=== PATIENT | male | born 1955 | race Caucasian/White ===

== ENCOUNTER → 2019-09-23 10:46 | Outpatient (BNVA) | payer OTHER, SELFPAY | PROVIDERS: Family Provider Family Medicine; PCP Family Medicine; Visit Provider Internal Medicine Rheumatology | DX: L40.59 Other psoriatic arthropathy (principal); L40.0 Psoriasis vulgaris; Z79.899 Other long term (current) drug therapy; Z79.52 Long term (current) use of systemic steroids | CPT/HCPCS: 99213 ==

== ENCOUNTER 2019-10-27 12:31 | Outpatient (CLI) | payer OTHER, SELFPAY ==
[2019-10-27 13:04] LABS: Basophils # 0.1 10^3/uL (0.0-0.1); Eosinophils # 0.3 10^3/uL (0.0-0.8); Eosinophils % 4.6 %; Hematocrit 44.9 % (42.0-52.0); Hemoglobin 14.3 g/dL (11.7-16.6); Lymphocytes # 1.5 10^3/uL (0.8-4.8); Lymphocytes % 23.8 %; Mean Corpuscular HGB Conc 31.8 g/dL (30.0-36.0); Mean Corpuscular Hemoglobin 28.3 pg (28.0-34.0); Mean Corpuscular Volume 88.7 fL (80-94); Mean Platelet Volume 10.3 fL (7.4-10.4); Monocytes # 0.9 10^3/uL (0.2-0.9); Monocytes % 13.8 %; Neutrophils # 3.5 10^3/uL (1.8-7.7); Neutrophils % 56.6 %; Nucleated Red Blood Cells % 0 %; Platelet Count 190 10^3/cmm (130-400); Red Blood Count 5.06 10^6/uL (4.1-5.3); Red Cell Distribution Width 14.3 % (12.1-15.1); White Blood Count 6.1 10^3/uL (4.0-10.0)
[2019-10-27 13:05] LABS: Glomerular Filtration Rate 55.2 mL/min (90-130)
[2019-10-27 13:06] LABS: Alanine Aminotransferase 19 U/L (0-41); Albumin Level 3.9 g/dL (3.5-5.2); Alkaline Phosphatase 50 IU/L (40-130); Aspartate Amino Transferase 18 U/L (0-40); C Reactive Protein 0.9 mg/L (0.0-4.9); Globulin 2.9 g/dL (1.3-4.6); Total Bilirubin 0.3 mg/dL (0.15-1.2); Total Protein 6.8 g/dL (6.6-8.7)
[2019-10-27 14:09] LABS: Erythrocyte Sedimentation Rate 7 mm/hr (0-10)
== END 2019-10-27 12:32 | disposition home or self-care (01) ==
PROVIDERS: Family Provider Family Medicine; PCP Family Medicine; Visit Provider Internal Medicine Rheumatology
DX: L40.59 Other psoriatic arthropathy (principal); Z79.52 Long term (current) use of systemic steroids
CPT/HCPCS: 80076; 82565; 85025; 85651; 86140

== ENCOUNTER → 2020-03-07 08:14 | Outpatient (BNVA) | payer OTHER, SELFPAY | PROVIDERS: Family Provider Family Medicine; PCP Family Medicine; Visit Provider Internal Medicine Rheumatology | DX: L40.0 Psoriasis vulgaris (principal); Z11.59 Encounter for screening for other viral diseases; Z72.89 Other problems related to lifestyle; Z79.52 Long term (current) use of systemic steroids | CPT/HCPCS: 36415; 80076; 82565; 85025; 85651; 86140; 86704 ==

== ENCOUNTER → 2020-03-08 15:54 | Outpatient (BNVA) | payer OTHER, SELFPAY | PROVIDERS: Family Provider Family Medicine; PCP Family Medicine; Visit Provider Internal Medicine Rheumatology | DX: L40.0 Psoriasis vulgaris (principal); Z79.899 Other long term (current) drug therapy; Z71.89 Other specified counseling | CPT/HCPCS: 99214 ==

== ENCOUNTER 2020-03-17 09:24 | Outpatient (CLI) | payer OTHER, SELFPAY ==
--- NOTE | 2020-03-17 09:32 | XR_ITS ---
WS: [id number] Lumbar spine, 3 views, 03/17/2020. Clinical Data: inflammatory arthritis Comparison: None. Findings: No compression fractures or subluxation is seen. No disc space narrowing is seen. The transverse proc esses and SI joints are normal. There is anterior osteoarthritic spurring from L2 through L5. There is calcification in the wall of t he abdominal aorta but no aneurysm is seen. XR/XR lumbar spine 2-3V* [id number] Impression: Moderate anterior osteoarthritic spurring L2-L5.
--- NOTE | 2020-03-17 09:32 | XR_ITS ---
WS: [id number] Cervical spine, 3 views, 03/17/2020 Clinical Data: inflammatory arthritis Comparison: None. Findings: No compression fractures are seen. There is anterior osteoarthritic spurring at C4-C6. Ther e is disc space narrowing C5-C6. No prevertebral soft tissue swelling is present. The odontoid is nor mal. The lung apices and soft tissues of neck are normal. XR/XR cervical spine 3V* [id number] Impression: 1. Anterior osteoarthritic change from C4 through C6. 2. Degenerative disc narrowing at C5-C6.
--- NOTE | 2020-03-17 09:32 | XR_ITS ---
WS: [id number] Left foot, 3 views, 03/17/2020 Clinical Data: inflammatory arthritis Comparison: None. Findings: No fractures or dislocations are seen. No bone destruction or erosion is noted. The joint spaces and soft tissues are normal. Minimal degenerative change of the head of the left first metatarsal is seen . There is an Achilles spur. XR/XR foot LT min 3V* [id number] Impression: Minimal degenerative change at head of left first metatarsal.
--- NOTE | 2020-03-17 09:32 | XR_ITS ---
WS: [id number] Thoracic spine, 3 views, 03/17/2020 Clinical Data: inflammatory arthritis Comparison: None. Findings: No compression fractures are seen. The disc heights are normal. Mild anterior osteoarthritic change is seen from the T7-T10. The paravertebral regions are normal. Th ere may be a hiatal hernia. XR/XR thoracic spine 3V* [id number] Impression: Mild osteoarthritis from T7 through T10.
--- NOTE | 2020-03-17 09:32 | XR_ITS ---
WS: [id number] Left hand, 3 views, 03/17/2020 Clinical Data: inflammatory arthritis Comparison: None. Findings: No fractures or dislocations are seen. The soft tissues are unremarkable. The joint spaces are normal No periarticular calcifications or demineralization is seen. XR/XR hand LT min 3V* [id number] Impression: Negative left hand.
--- NOTE | 2020-03-17 09:32 | XR_ITS ---
WS: [id number] Right hand, 3 views, 03/17/2020 Clinical Data: inflammatory arthritis Comparison: None. Findings: No fractures or dislocations are seen. The soft tissues are unremarkable. There is minima l osteoarthritic change of the right second DIP joint. No periarticular calcifications or demineralization is seen XR/XR hand RT min 3V* [id number] Impression: Minimal osteoarthritis of the right second DIP joint.
--- NOTE | 2020-03-17 09:32 | XR_ITS ---
WS: [id number] Right foot, 3 views, 03/17/2020 Clinical Data: inflammatory arthritis Comparison: None. Findings: No fractures or dislocations are seen. No bone destruction or erosion is noted. The joint spaces and soft tissues are normal. There is a plantar spur and an Achilles spur. No periarticular demineralization or calcifications are seen. XR/XR foot RT min 3V* [id number] Impression: Negative right foot.
== END 2020-03-17 09:25 | disposition home or self-care (01) ==
LOC: RADWPI 09:27
PROVIDERS: Family Provider Family Medicine; PCP Family Medicine; Visit Provider Internal Medicine Rheumatology
DX: M19.90 Unspecified osteoarthritis, unspecified site (principal); M47.812 Spondylosis without myelopathy or radiculopathy, cervical region; M19.041 Primary osteoarthritis, right hand; M46.06 Spinal enthesopathy, lumbar region; M47.814 Spondylosis without myelopathy or radiculopathy, thoracic region
CPT/HCPCS: 72040; 72072; 72100; 73130; 73630

== ENCOUNTER → 2020-06-21 10:13 | Outpatient (BNVA) | payer OTHER, SELFPAY | PROVIDERS: Family Provider Family Medicine; PCP Family Medicine; Visit Provider Internal Medicine Rheumatology | DX: Z79.899 Other long term (current) drug therapy (principal) | CPT/HCPCS: 36415; 80076; 82565; 85025; 85651; 86140 ==

== ENCOUNTER → 2020-08-09 09:38 | Outpatient (BNVA) | payer OTHER, SELFPAY | PROVIDERS: Family Provider Family Medicine; PCP Family Medicine; Visit Provider Internal Medicine Rheumatology | DX: L40.59 Other psoriatic arthropathy (principal); L40.0 Psoriasis vulgaris; Z79.52 Long term (current) use of systemic steroids; Z79.899 Other long term (current) drug therapy; N18.9 Chronic kidney disease, unspecified | CPT/HCPCS: 99214 ==

== ENCOUNTER → 2020-09-08 13:10 | Outpatient (BNVA) | payer OTHER, SELFPAY | PROVIDERS: Family Provider Family Medicine; PCP Family Medicine Adult Medicine; Visit Provider Internal Medicine Rheumatology | DX: Z79.899 Other long term (current) drug therapy (principal) | CPT/HCPCS: 36415; 80076; 82565; 85025; 85651; 86140 ==

== ENCOUNTER → 2020-12-01 09:44 | Outpatient (BNVA) | payer OTHER, SELFPAY | PROVIDERS: Family Provider Family Medicine; PCP Family Medicine Adult Medicine; Visit Provider Internal Medicine Rheumatology | DX: L40.0 Psoriasis vulgaris (principal); L40.59 Other psoriatic arthropathy; Z79.899 Other long term (current) drug therapy; N18.9 Chronic kidney disease, unspecified | CPT/HCPCS: 99214 ==

== ENCOUNTER → 2021-01-05 10:04 | Outpatient (BNVA) | payer OTHER, SELFPAY | PROVIDERS: Family Provider Family Medicine; PCP Family Medicine Adult Medicine; Visit Provider Internal Medicine Rheumatology | DX: L40.59 Other psoriatic arthropathy (principal); Z79.899 Other long term (current) drug therapy | CPT/HCPCS: 36415; 80076; 82565; 85025; 86140 ==

== ENCOUNTER → 2021-04-03 09:15 | Outpatient (BNVA) | payer OTHER, SELFPAY | PROVIDERS: Family Provider Family Medicine; PCP Family Medicine Adult Medicine; Visit Provider Internal Medicine Rheumatology | DX: L40.59 Other psoriatic arthropathy (principal); L40.0 Psoriasis vulgaris; Z79.899 Other long term (current) drug therapy; N18.9 Chronic kidney disease, unspecified; Z71.89 Other specified counseling | CPT/HCPCS: 99214 ==

== ENCOUNTER → 2021-07-18 11:04 | Outpatient (BNVA) | payer OTHER, SELFPAY | PROVIDERS: Family Provider Family Medicine; PCP Family Medicine Adult Medicine; Visit Provider Internal Medicine Rheumatology | DX: L40.59 Other psoriatic arthropathy (principal); Z79.899 Other long term (current) drug therapy | CPT/HCPCS: 36415; 80076; 82565; 85025; 86140 ==

== ENCOUNTER → 2022-04-09 14:10 | Outpatient (BNVA) | payer MEDICARE, SELFPAY | PROVIDERS: Family Provider Family Medicine; PCP Family Medicine Adult Medicine; Visit Provider Internal Medicine Rheumatology | DX: L40.59 Other psoriatic arthropathy (principal); L40.0 Psoriasis vulgaris; Z79.899 Other long term (current) drug therapy; Z79.52 Long term (current) use of systemic steroids; N18.9 Chronic kidney disease, unspecified | CPT/HCPCS: 99214 ==

== ENCOUNTER → 2022-08-01 14:44 | Outpatient (BNVA) | payer MEDICARE, SELFPAY | PROVIDERS: Family Provider Family Medicine; PCP Family Medicine Adult Medicine; Visit Provider Internal Medicine Rheumatology | DX: L40.59 Other psoriatic arthropathy (principal); Z79.899 Other long term (current) drug therapy; L40.0 Psoriasis vulgaris; N18.9 Chronic kidney disease, unspecified | CPT/HCPCS: 99214 ==

== ENCOUNTER 2022-08-21 16:35 | Outpatient (CLI) | payer MEDICARE, SELFPAY ==
[2022-08-21 17:06] LABS: Basophils # 0.1 10^3/uL (0.0-0.1); Basophils % 1.3 %; Eosinophils # 0.3 10^3/uL (0.0-0.8); Eosinophils % 5.2 %; Hematocrit 46.2 % (42.0-52.0); Hemoglobin 15.2 g/dL (11.7-16.6); Lymphocytes # 1.8 10^3/uL (0.8-4.8); Lymphocytes % 29.4 %; Mean Corpuscular HGB Conc 32.9 g/dL (30.0-36.0); Mean Corpuscular Hemoglobin 30.8 pg (28.0-34.0); Mean Corpuscular Volume 93.7 fl (80-94); Mean Platelet Volume 9.9 fL (7.4-10.4); Monocytes # 0.8 10^3/uL (0.2-0.9); Monocytes % 13.1 %; Neutrophils # 3.14 10^3/uL (1.8-7.7); Neutrophils % 50.7 %; Nucleated Red Blood Cells % 0 %; Platelet Count 205 10^3/cmm (130-400); Red Blood Count 4.93 10^6/uL (4.1-5.3); Red Cell Distribution Width 13.4 % (12.1-15.1); White Blood Count 6.2 10^3/uL (4.0-10.0)
[2022-08-21 17:27] LABS: Alanine Aminotransferase 21 U/L (0-41); Albumin Level 3.8 g/dL (3.5-5.2); Alkaline Phosphatase 69 U/L (40-130); Globulin 3.3 g/dL (1.3-4.6); Total Bilirubin 0.2 mg/dL (0.15-1.2); Total Protein 7.1 g/dL (6.6-8.7)
[2022-08-21 17:30] LABS: Aspartate Amino Transferase 25 U/L (0-40)
== END 2022-08-21 16:36 | disposition home or self-care (01) ==
PROVIDERS: PCP Family Medicine Adult Medicine; Visit Provider Internal Medicine Rheumatology
DX: L40.59 Other psoriatic arthropathy (principal); Z79.899 Other long term (current) drug therapy
CPT/HCPCS: 36415; 80076; 82565; 85025; 86140

== ENCOUNTER 2022-08-23 10:11 | Inpatient (IN) | payer MEDICARE, SELFPAY ==
[2022-08-23] VITALS (24 sets, daily range): BP systolic 118–218; BP diastolic 82–113; PULSE 54–78; RESP 12–24; TEMP 36.2–36.7; O2SAT 92–99; BMI 33.6
--- NOTE | 2022-08-23 10:22 | ECG_ITS ---
[facility] Test Date: 2022-08-23 Pat Name: Orlando Tam Department: Room: Gender: Male Ent Consultant: : 1955 Requested By: Mayo Watts Order Number: [id number] Pan MD: Neetu Molina M.D. Measurements Intervals [place] Rate: 65 P: 17 [place]: 186 QRS: -25 QRSD: 91 T: 20 QT: 372 QTc: 388 Interpretive Statements SINUS RHYTHM BORDERLINE LEFT AXIS DEVIATION [QRS AXIS < -20] NONSPECIFIC ST & T-WAVE ABNORMALITY Compared to ECG 08/23/2022 11:26:39 Ectopic atrial rhythm no longer present T-wave abnormality still present Electronically Signed On 08-23-2022 21:11:29 APPLIANCE SERVICE REPRESENTATIVE by Neetu Molina M.D. [id number]
--- NOTE | 2022-08-23 10:24 | ECG_ITS ---
[facility] Test Date: 2022-08-23 Pat Name: Orlando Tam Department: Room: Gender: Male Internet Marketing Specialist: : 1955 Requested By: Mayo Watts Order Number: [id number] Pan MD: Neetu Molina M.D. Measurements Intervals [place] Rate: 60 P: 152 [place]: 174 QRS: 201 QRSD: 92 T: 155 QT: 378 QTc: 380 Interpretive Statements Lead reversal- 1 & aVL POSSIBLE RIGHT VENTRICULAR HYPERTROPHY [SOME/ALL OF: PROMINENT R IN V1, LATE TRANSITION, RAD, MÓNICA, SSS] NONSPECIFIC ST & T-WAVE ABNORMALITY No previous ECG available for comparison Electronically Signed On 08-23-2022 21:11:05 EMERGENCY VETERINARIAN by Neetu Molina M.D. [id number]
--- NOTE | 2022-08-23 10:31 | ECG_ITS ---
[facility] Test Date: 2022-08-23 Pat Name: Orlando Tam Department: Room: Gender: Male Hand Icer: : 1955 Requested By: Mayo Watts Order Number: [id number] Pan MD: Neetu Molina M.D. Measurements Intervals [place] Rate: 71 P: 62 [place]: 176 QRS: 8 QRSD: 95 T: 57 QT: 389 QTc: 424 Interpretive Statements SINUS RHYTHM EARLY REPOLARIZATION [ST ELEVATION WITH NORMALLY INFLECTED T-WAVE] No previous ECG available for comparison Electronically Signed On 08-23-2022 21:09:29 SUSTAINABLE COMMUNITIES DESIGNER by Neetu Molina M.D. [id number]
--- NOTE | 2022-08-23 10:31 | XR_ITS ---
WS: [id number] Portable AP upright chest, 08/23/2022 Clinical Data: chest pain Comparison: PA and lateral chest, 11/19/2018 Findings: No nodules, masses or effusions are seen. The heart is normal. The pulmonary vascularity is not increased. No pneumonia or pneumothorax is seen. The aortic arch and descending thoracic aorta s how tortuosity. There is a large hiatal hernia behind the heart. Monitor leads are on the chest wall. XR/XR chest 1V portable [id number] Impression: Atherosclerosis and hiatal hernia.
[2022-08-23 10:33] LABS: Basophils # 0.1 10^3/uL (0.0-0.1); Eosinophils # 0.3 10^3/uL (0.0-0.8); Eosinophils % 5.1 %; Hematocrit 48.4 % (42.0-52.0); Hemoglobin 16.1 g/dL (11.7-16.6); Lymphocytes # 1.8 10^3/uL (0.8-4.8); Lymphocytes % 30.6 %; Mean Corpuscular HGB Conc 33.3 g/dL (30.0-36.0); Mean Corpuscular Hemoglobin 30.8 pg (28.0-34.0); Mean Corpuscular Volume 92.7 fl (80-94); Mean Platelet Volume 9.7 fL (7.4-10.4); Monocytes # 0.6 10^3/uL (0.2-0.9); Neutrophils # 2.97 10^3/uL (1.8-7.7); Nucleated Red Blood Cells % 0 %; Platelet Count 208 10^3/cmm (130-400); Red Blood Count 5.22 10^6/uL (4.1-5.3); Red Cell Distribution Width 13.3 % (12.1-15.1); White Blood Count 5.7 10^3/uL (4.0-10.0)
[2022-08-23] MEDS: clopidogrel 300 mg Tablet 600 MG PO (10:42)
[2022-08-23] MEDS: heparin 5,000 unit/mL INJ 1 mL 4000 UNIT IVP (10:43)
[2022-08-23 10:49] LABS: Partial Thromboplastin Time 27.8 SECONDS (23.9-36.7)
--- NOTE | 2022-08-23 10:53 | ED_ITS ---
HPI - Chest Pain General: Chief Complaint: Chest Pain Stated Complaint: chest pain and arm hurts Time Seen by Provider: 08/23/22 10:26 Source: patient Mode of arrival: ambulatory History of Present Illness: 67-year-old male presents emergency room complaining of substernal chest pain rating to his left arm that began yesterday afternoon around 1 PM. He has had intermitting chest pain since then increasing in intensity and frequency. He is requiring less exertion to bring it on. He noticed since yesterday when it began it would cause some shortness of breath nausea. With rest it would resolve within 5 minutes. Last night he had severe pain radiating to his left arm he took some ibuprofen for it. This morning when he walked from his home to his vehicle had severe pain and it took 4-minute 4 to 5 minutes to resolve. States the pain was 10 of 10 of the time. Walking back to the exam room he had similar type pain when I came to see the patient his pain had completely resolved. He has no known history of coronary artery disease does have a history of some reflux. Patient is not diabetic. He has no known history of hypertension he is severely hypertensive on arrival here. His initial EKG shows questionable ST elevation but appears to be early repull I asked Dr. Nolasco to over read he agreed it was likely early repolarization. MD complaint: chest pain Onset (ago): day(s) (1) Timing of current episode: episodic Prior episodes: Yes Onset: during exertion Pain location: substernal and left chest Pain radiation: left arm Severity: severe Quality: tightness and aching Relieving factors: rest Exacerbating factors: exertion Associated symptoms: Deny abdominal pain, diaphoresis, dyspnea, fever(s), leg edema, nausea, palpitations, sense of impending doom, syncope or vomiting Treatment prior to arrival: none Review of Systems Const: Denies: fever(s), chills, fatigue, malaise or diaphoresis ENMT: Denies: throat pain, ear or mastoid pain, nasal discharge or nasal congestion Card: Reports: chest pain and edema; Denies: palpitations, irregular heart rhythm or syncope Resp: Denies: dyspnea, productive cough or non-productive cough GI: Denies: abdominal pain, nausea or vomiting : Denies: flank pain, dysuria, urinary frequency or urinary urgency Skin/Breast: Denies: rash or pruritus PFSH ED PFSH: Medical History CKD (chronic kidney disease) High risk medication use Low back strain Nasal and sinus discharge Surgical History History of elbow surgery History of mandibular surgery Family History Other CAD (coronary artery disease) Cancer Hyperlipidemia Hypertension Denies family history of Rheumatoid arthritis Diabetes Chronic kidney disease (CKD) Systemic lupus erythematosus (SLE) in adult Stroke Social History Smoking and tobacco status: never smoked Alcohol intake: never History of recent travel: No Physical Exam Const: GENERAL APPEARANCE: cooperative and comfortable ORIENTATION/CONSCIOUSNESS: Yes awake, Yes oriented to person, Yes oriented to place and Yes oriented to time HENMT: COMMON NORMALS: normocephalic, atraumatic and hearing grossly normal bilaterally HEAD & SCALP: normocephalic and atraumatic Resp: COMMON NORMALS: normal respiratory effort, No retractions, No use of accessory muscles and clear to auscultation bilaterally AUSCULTATION: clear to auscultation bilaterally Cardio: COMMON NORMALS: regular rate, regular rhythm and No murmurs present (Cardio) RATE: regular rate RHYTHM: regular rhythm GI: COMMON NORMALS: Soft to palpation and No hepatosplenomegaly present AUSCULTATION: Yes normoactive bowel sounds PALPATION: Yes Soft to palpation, No Tenderness to palpation present (GI), No Guarding due to palpation present (GI) and Yes No hepatosplenomegaly present Extremity: COMMON NORMALS: normal to inspection, capillary refill normal, no clubbing, cyanosis or edema, no calf tenderness and no pedal edema Neuro: SENSORIUM/ORIENTATION: Yes oriented to person, Yes oriented to place and Yes oriented to time Skin: COMMON NORMALS: no rashes or lesions noted GENERAL SKIN EXAM: no rashes or lesions noted Course Vital Signs: Vital signs: Vital Signs Temperature 98.6 F 08/24/22 08:00 Pulse Rate 67 08/24/22 08:00 Respiratory Rate 22 H 08/24/22 08:00 Blood Pressure 120/75 08/24/22 08:00 Pulse Oximetry 96 12/30/22 08:00 Oxygen Delivery Me thod 08/24/22 03:34 MDM - Chest Pain Medical Decision Making EKG appears abnormal. Reviewed with Dr. Nolasco he feels it is early repolar ization, and did not meet STEMI criteria.. He recommended serial enzymes, and treating for anginal symptoms. He also recommended patient be admitted and treated as an NSTEMI. Patient responded well to treatments and is pain-free. Second troponin shows a significant positive delta. We had already at this time started patient on nitro as well as given him 4000 of heparin and 600 of Plavix as and aspirin. As long as he is at rest he has no symptoms. Admit to hospitalist consult cardiology Medical Records I reviewed the patient's medical records. Lab Data I reviewed the patient's lab results. 08/23/22 10:20 08/23/22 10:20 Radiology Impressions Chest X-Ray 08/23/22 10:31 Impression: Atherosclerosis and hiatal hernia. Laboratory Results WBC 5.7 10^3/uL (4.0-10.0) 08/23/22 10:20 RBC 5.22 10^6/uL (4.1-5.3) 08/23/22 10:20 Hgb 16.1 g/dL (11.7-16.6) 08/23/22 10:20 Hct 48.4 % (42.0-52.0) 08/23/22 10:20 MCV 92.7 fl (80-94) 08/23/22 10:20 MCH 30.8 pg (28.0-34.0) 08/23/22 10:20 MCHC 33.3 g/dL (30.0-36.0) 08/23/22 10:20 RDW 13.3 % (12.1-15.1) 08/23/22 10:20 Plt Count 208 10^3/cmm (130-400) 08/23/22 10:20 MPV 9.7 fL (7.4-10.4) 08/23/22 10:20 Neut % (Auto) 52.0 % 08/23/22 10:20 Lymph % (Auto) 30.6 % 08/23/22 10:20 [place] % (Auto) 11.0 % 08/23/22 10:20 Eos % (Auto) 5.1 % 08/23/22 10:20 Baso % (Auto) 1.0 % 08/23/22 10:20 Neut # (Auto) 2.97 10^3/uL (1.8-7.7) 08/23/22 10:20 Lymph # (Auto) 1.8 10^3/uL (0.8-4.8) 08/23/22 10:20 [place] # (Auto) 0.6 10^3/uL (0.2-0.9) 08/23/22 10:20 Eos # (Auto) 0.3 10^3/uL (0.0-0.8) 08/23/22 10:20 Baso # (Auto) 0.1 10^3/uL (0.0-0.1) 08/23/22 10:20 Nucleated RBC % (auto) 0 % 08/23/22 10:20 Nucleated RBCs # 0.0 /100WBC 08/23/22 10:20 PT 13.50 SECONDS (12.1-14.9) 08/23/22 10:20 INR 1.00 (0.8-1.2) 08/23/22 10:20 APTT 27.8 SECONDS (23.9-36.7) 08/23/22 10:20 Sodium 134 mmol/L (136-145) L 08/23/22 10:20 Potassium 4.1 mmol/L (3.5-5.1) 08/23/22 10:20 Chloride 100 mmol/L (98-107) 08/23/22 10:20 Carbon Dioxide 25 mmol/L (22-29) 08/23/22 10:20 Anion Gap 13.1 (5-19) 08/23/22 10:20 BUN 23 mg/dL (8-23) 08/23/22 10:20 Creatinine 1.1 mg/dL (0.7-1.2) 08/23/22 10:20 GFR Calculation 66.4 mL/min (90-130) L 08/23/22 10:20 Glucose 94 mg/dL (65-115) 08/23/22 10:20 Calculated Osmolality 281 mOsm/kg (285-295) L 08/23/22 10:20 Calcium 8.7 mg/dL (8.5-10.5) 08/23/22 10:20 Total Bilirubin 0.4 mg/dL (0.15-1.2) 08/23/22 10:20 AST 24 U/L (0-40) 08/23/22 10:20 ALT 24 U/L (0-41) 08/23/22 10:20 Alkaline Phosphatase 68 U/L (40-130) 08/23/22 10:20 Troponin T Baseline 42 ng/L (0-15) H 08/23/22 10:20 Troponin T 120 Minute 69.96 ng/L (0-15) H 08/23/22 12:13 Delta Troponin T 27.96 ABS# (0-10) H* 08/23/22 12:13 NT-Pro-B Natriuret Pep 123 pg/mL (0-125) 08/23/22 10:20 Total Protein 7.4 g/dL (6.6-8.7) 08/23/22 10:20 Albumin 4.3 g/dL (3.5-5.2) 08/23/22 10:20 Globulin 3.1 g/dL (1.3-4.6) 08/23/22 10:20 Discharge Plan Discharge Patient Disposition: Admitted As Inpatient Admit Provider: Iesha Keen Clinical Impression: NSTEMI (non-ST elevated myocardial infarction), Polyarticular psoriatic arthritis, Hypertension Condition: Stable Coding Level of Care Code ED Advanced Analytics Associate for Toni Schwarz
[2022-08-23 11:00] LABS: Troponin(5th) Baseline 42 ng/L (0-15)
[2022-08-23] MEDS: nitroglycerin drip 50 MG/250 ML PREMIX IV (11:00)
[2022-08-23 11:10] LABS: Alanine Aminotransferase 24 U/L (0-41); Albumin Level 4.3 g/dL (3.5-5.2); Alkaline Phosphatase 68 U/L (40-130); Anion Gap 13.1 (5-19); Aspartate Amino Transferase 24 U/L (0-40); Blood Urea Nitrogen 23 mg/dL (8-23); Calcium 8.7 mg/dL (8.5-10.5); Carbon Dioxide 25 mmol/L (22-29); Chloride 100 mmol/L (98-107); Globulin 3.1 g/dL (1.3-4.6); Glomerular Filtration Rate 66.4 mL/min (90-130); Glucose 94 mg/dL (65-115); NT Pro B Type Natriuretic Pept 123 pg/mL (0-125); Osmolality Calculated 281 mOsm/kg (285-295); Potassium 4.1 mmol/L (3.5-5.1); Sodium 134 mmol/L (136-145); Total Bilirubin 0.4 mg/dL (0.15-1.2); Total Protein 7.4 g/dL (6.6-8.7)
[2022-08-23] MEDS: heparin drip 25,000 UNIT/500 ML PREMIX 30.74 UNIT IV (12:51)
[2022-08-23 13:02] LABS: Troponin 5 2HR 69.96 ng/L (0-15)
[2022-08-23 13:03] LABS: Troponin 5 2HR Delta 27.96 ABS# (0-10)
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
--- NOTE | 2022-08-23 15:23 | USCV_ITS ---
Orlando Tam Age: 67 Gender: M : 1955 Exam Date: 08/23/2022 16:04 Ordering Phys: Iesha Keen MD Technologist: Candice Amezcua Exam Location: [facility] – [place] Indication: NSTEMI BP: 138 / 81 HR: 57 Rhythm: Sinus Technical Quality: Adequate MEASUREMENTS (Male / Female) Normal Values 2D ECHO LV Diastolic Diameter PLAX 3.4 cm 4.2 - 5.9 / 3.9 - 5.3 cm LV Systolic Diameter PLAX 2.2 cm IVS Diastolic Thickness 1.4 cm 0.6 - 1.0 / 0.6 - 0.9 cm IVS Systolic Thickness 1.5 cm LVPW Diastolic Thickness 1.2 cm 0.6 - 1.0 / 0.6 - 0.9 cm LVPW Systolic Thickness 1.8 cm LVOT Diameter 2.4 cm LV Ejection Fraction 2D Teich 67.2 % LV Ejection Fraction MOD 2C 53.9 % LV Ejection Fraction 2C AL 55.8 % LA Diameter 3.0 cm LA Width 3.7 cm LA Height 3.3 cm RA Width 3.6 cm RA Height 3.3 cm Aorta at Sinotubular Diameter 3.7 cm M-MODE MV E Point Septal Separation 0.8 cm DOPPLER AV Peak Velocity 118.0 cm/s LVOT Peak Velocity 106.0 cm/s AV Area Cont Eq vti 4.4 cm squared AV Area Cont Eq pk 4.2 cm squared MV Area PHT 2.6 cm squared Mitral E to A Ratio 0.8 MV E' Velocity 31.0 cm/s Mitral E to MV E' Ratio 10.1 Mitral E to LV E' Lateral Ratio 9.0 Mitral E to LV E' Septal Ratio 11.6 TR Peak Velocity 212.4 cm/s TR Peak Gradient 18.0 mmHg TR Mean Velocity 163.3 cm/s TR Mean Gradient 11.6 mmHg TR Velocity Time Integral 63.0 cm Right Atrial Pressure 3.0 mmHg Pulmonary Artery Systolic Pressu 21.0 mmHg PV Peak Velocity 63.0 cm/s RV Acceleration Time 0.2 s RV Ejection Time 0.3 s RV AcT/ET 0.5 FINDINGS Left Ventricle Normal left ventricular size and wall thickness. Mildly decreased left ventricle systolic function. Left ventricular ejection fraction is estimated at 50-55 %. There is moderate hypokinesis of basal to mid anterior, apical septal and apical espinoza. Grade I diastolic dysfunction (abnormal relaxation filling pattern), normal to mildly elevated filling pressures. Right Ventricle Normal right ventricular size and systolic function. Right ventricular systolic pressure 21 mmHg. Right Atrium Normal right atrial size. Left Atrium Normal left atrial size. Mitral Valve Structurally normal mitral valve. No mitral valve stenosis. No mitral valve regurgitation. Aortic Valve Structurally normal trileaflet aortic valve. No aortic valve stenosis. Trace aortic valve regurgitation. Tricuspid Valve Structurally normal tricuspid valve. Pulmonic Valve Pulmonic valve not well visualized. No pulmonary valve stenosis. No pulmonary valve regurgitation. Pericardium No pericardial effusion. Aorta Normal size aortic root and proximal ascending aorta. IVC Inferior vena cava not visualized. CONCLUSIONS 1. Normal left ventricular size and wall thickness. Mildly decreased left ventricle systolic function. Left ventricular ejection fraction is estimated at 50-55 %. There is moderate hypokinesis of basal to mid anterior, apical septal and apical espinoza.. Grade I diastolic dysfunction (abnormal relaxation filling pattern), normal to mildly elevated filling pressures. 2. Normal right ventricular size and systolic function. 3. Trace aortic valve regurgitation. 4. When compared to echocardiogram dated 09/29/2015, there is decrease in LV function and new regional wall motion abnormality now. Rosalee Guzman MD (Electronically Signed) Final Date: 24 August 2022 10:10 S
[2022-08-23 16:06] LABS: Estmated Average Glucose 105; Hemoglobin A1C 5.3 % (4.0-6.0)
--- NOTE | 2022-08-23 16:23 | ECG_ITS ---
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 [id number]
[2022-08-23 16:34] LABS: Chol HDL Ratio 4.71 mg/dL (1.0-5.00); Cholesterol 193 mg/dL (0-200); HDL Cholesterol 41 mg/dL (60-100); LDL Cholesterol Calculated 140 mg/dL (50-129); LDL HDL Ratio 3.41 RATIO (0.00-3.22); Thyroid Stimulating Hormone 0.87 uIU/mL (0.27-4.20); Triglycerides 61 mg/dL (0-150)
[2022-08-23] MEDS: atorvastatin 40 mg Tablet PO (17:00)
[2022-08-23] MEDS: sodium chloride 0.9% 1,000 ML 50 ML IV (17:01)
[2022-08-23 17:15] LABS: Troponin 5 6HR 138.4 ng/L (0-15)
[2022-08-23 17:16] LABS: Troponin 5 6HR Delta 96.4 ng/L (0-12)
--- NOTE | 2022-08-23 17:33 | P.CONIM_ITS ---
Providers/Reason For Consult Consulting Physician/Specialty*: Aj Lowery MD/ Interventional Cardiology Reason for Consult*: Chest pain/ dynamic EKG changes Requesting Physician: Dr Frye Attending Physician: Iesha Keen MD Primary Care Provider: Wilfredo Jeter MD History of Present Illness History of Present Illness Orlando Tam is a 67 year old male with no significant prior cardiac history who presented to the hospital with 1 day of on and off severe chest pain. Any exertion would make it worse. His blood pressure was quite high at that presentation. Initial EKG did not meet STEMI criteria. His chest pain resolved with administration of nitro drip and heparin drip. Subsequent EKGs did show dynamic EKG changes in anterior/anterolateral leads concerning for Wellens sign. Initial troponin was 42 that has trended up to 69 at 2 hours. Review of Systems General: Reports: 10 or more systems reviewed and unremarkable except in HPI and below Const: Denies: fever(s), chills or body aches Eyes: Denies: change in vision, blurry vision or photophobia ENMT: Denies: throat pain, enlarged tonsils, odynophagia, hoarseness or nasal congestion Card: Reports: chest pain; Denies: palpitations, irregular heart rhythm, edema, swelling of feet/ankles, lightheadedness, pre-syncope, dyspnea on exertion or orthopnea Resp: Denies: dyspnea, productive cough, non-productive cough, wheezing, stridor, pain on inspiration, change in phlegm color, hemoptysis or chest congestion GI: Denies: abdominal pain, nausea, vomiting, hematemesis, coffee ground emesis, dysphagia, heartburn, diarrhea, constipation, GI cramping, change in stool character, hematochezia or melena : Denies: flank pain, dysuria, urinary frequency, urinary urgency, urinary hesitancy or hematuria Musc: Denies: neck pain, back pain, extremity pain, joint swelling, joint warmth or deformity Neuro: Denies: headache(s), numbness in extremities, weakness in extremities, sensory changes, difficulty walking, frequent falls, dizziness, vertigo, behavioral changes, Slurred speech present or seizure-like activity Psych: Denies: anxiety, depression, suicidal ideation or homicidal ideation Endo: Denies: polyuria, polydipsia, tired all the time, cold intolerance or hot flashes Xaiver/Lymph: Denies: easy bruising or easy bleeding Medications/Allergies Home Medications Medication Instructions Recorded Confirmed Last Taken Type esomeprazole magnesium 20 mg 20 mg PO DAILY takes OTC 12/01/20 08/23/22 08/23/22 History capsule,delayed release (Nexium) ipratropium bromide 21 mcg (0.03 2 spray intranasal TID #30 mL 05/15/22 08/23/22 Unknown Rx %) nasal spray prednisone 10 mg tablet See Rx Instructions .Route 08/13/22 08/23/22 Unknown Rx .COMPLEX #60 tabs secukinumab 150 mg/mL subcutaneous 300 mg (2 mL) SUBCUT .L1jehyh #2 mL 08/23/22 08/23/22 Unknown Rx pen injector (Cosentyx Pen 300 mg/2 Pens () Allergies Allergy/AdvReac Type Severity Reaction Status Date / Time sulfasalazine Allergy Intermediate rash all Verified 08/01/22 15:03 over as a child leflunomide AdvReac Intermediate diarrhea Verified 08/01/22 15:03 methotrexate AdvReac Mild itch all Verified 08/01/22 15:03 over Current Medications Generic Name Dose Route Start Last Admin Trade Name Freq PRN Reason Stop Dose Admin Atorvastatin Calcium 40 mg 08/23/22 15:25 08/23/22 17:00 Atorvastatin 40 Mg Tablet PO 40 mg BEDTIME MARY JO Administration Nitroglycerin/Dextrose 50 mg in 250 mls @ 0 mls/hr 08/23/22 10:45 08/23/22 11:38 Nitroglycerin Drip IV 41.67 mcg/min .Q0M MARY JO 12.5 mls/hr Titration Protocol Per Protocol Heparin Sodium/Sodium Chloride 25,000 unit in 500 mls @ 0 mls/hr 08/23/22 11:45 08/23/22 17:20 Heparin Drip IV Infused .Q0M MARY JO Titration Protocol Per Protocol Sodium Chloride 1,000 mls @ 50 mls/hr 08/23/22 17:00 08/23/22 17:01 Sodium Chloride 0.9% IV 50 mls/hr .Q20H MARY JO Administration PFSH Acute PFSH: Medical History CKD (chronic kidney disease) High risk medication use Low back strain Nasal and sinus discharge Surgical History History of elbow surgery History of mandibular surgery Family History Other CAD (coronary artery disease) Cancer Hyperlipidemia Hypertension Denies family history of Rheumatoid arthritis Diabetes Chronic kidney disease (CKD) Systemic lupus erythematosus (SLE) in adult Stroke Social History Smoking and tobacco status: never smoked Alcohol intake: never History of recent travel: No Vitals/I&O/Wt Last Vital Signs Temp 98.1 F 08/23/22 10:19 Pulse 76 08/23/22 16:44 Resp 18 08/23/22 15:46 BP 161/97 08/23/22 15:46 Pulse Ox 95 08/23/22 16:44 O2 Del Method 08/23/22 16:44 08/23/22 08/23/22 08/23/22 06:59 14:59 22:59 Intake Total 1.5 / 1.5 500 / 501.5 Balance 1.5 / 1.5 500 / 501.5 Weight last 48 hrs Weight 241 lb 3 oz Weight 242 lb Physical Exam Narrative: GENERAL: Patient is alert, awake and oriented x3. [] NECK: No jugular vein distension. [] HEENT: No cyanosis. No icterus. No pallor. [] HEART: Regular S1 and S2. No murmur, rub or gallop. [] LUNGS: Clear to auscultate bilaterally. [] CENTRAL NERVOUS SYSTEM: Grossly nonfocal. [] EXTREMITIES: Lower extremities with 1+ edema bilaterally. Pulses palpable in the lower extremities, both dorsalis pedis and posterior tibial. [] Data 08/23/22 10:20 08/23/22 10:20 A&P Assessment and plan (1) NSTEMI (non-ST elevated myocardial infarction): (2) CKD (chronic kidney disease): (3) Hypertension: Plan Patient has presented with typical chest pain symptoms. EKG changes are dynamic and are consistent with Wellens sign. Given dynamic EKG changes and on and off chest pain symptoms, we have decided to bring patient to cardiac Route Sales Driver urgently. Continue aspirin and Plavix. Continue anticoagulation Echocardiogram has been ordered. Thank you for involving us with care of this patient. We will continue to follow. Please call with questions. Consult Attestations Medical Necessity Statement: Care expected to cross 2 midnights. Coding Level of Care Code Acute Configuration Management Specialist for Toni Schwarz Diagnoses NSTEMI (non-ST elevated myocardial infarction) I21.4 CKD (chronic kidney disease) N18.9 Hypertension I10
--- NOTE | 2022-08-23 17:34 | XACV_ITS ---
Exam Room: [facility] Ht: 180 cm Wt: 109 kg BSA: 2.38 m2 Gender: Male : 1955 Any Known Allergies: Other Exam Priority: Routine Procedure(s): Procedure Description: Diagnostic procedure Procedure Description: PCI procedure Procedure Description: Coronary IVUS Procedure Description: Drug Eluting Coronary Stent Procedure Description: PTCA Procedure Description: Miscellaneous Procedure Description: ACT Procedure Description: Coronary Angiography Diagnostic Cath Status: Urgent Diagnostic Findings * INDICATION:67 year old male with no significant prior cardiac history who presented to the hospital with 1 day of on and off severe chest pain. Any exertion would make it worse. His blood pressure was quite high at that presentation. Initial EKG did not meet STEMI criteria. His chest pain resolved with administration of nitro drip and heparin drip. Subsequent EKGs did show dynamic EKG changes in anterior/anterolateral leads concerning for Wellens sign. Initial troponin was 42 that has trended up to 69 at 2 hours.. * Left Main has no significant disease. * Proximal Left Anterior Descending to Mid Left Anterior Descending: significant 80% stenosis, MITALI: 3 flow. It gives rise to 2 large sized diagonal arteries prior to LAD total occlusion in the midsegment. Second diagonal artery has 50% stenosis at the ostium. * Mid Left Anterior Descending: total thrombotic occlusion, MITALI: 3 flow. * Proximal Right Coronary Artery: moderate to severe 60-70% stenosis, MITALI: 3 flow. * Circumflex has no disease. * Coronary angiography shows right dominance. PCI Status: Urgent PCI Indication: NSTE - ACS Interventional Findings * Procedure detail: We engaged left main artery with XB 3.5 guide catheter. IV heparin was administered to maintain ACT above 250s. 0.014 run-through guidewire was used to cross totally occluded LAD and was put in distal vessel. Second run-through guidewire was used to put second diagonal artery. We predilated the stenosis with 2.5 x 12 mm semicompliant balloon. This was followed by IVUS to size the vessel. We then placed 2.75 x 30 mm resolute [place] drug-eluting stent in the mid LAD. This was followed by a second stent in the proximal LAD which was 3.0 x 22 mm resolute Jody FABIO . Stents were postdilated with 3.0 x 8 mm noncompliant balloon. We then recrossed second diagonal artery with a run-through guidewire. However balloon could not be crossed. We dilated the first diagonal artery. At this time final angiogram was performed that showed excellent stent expansion, no residual stenosis and MITALI 3 flow.. * Proximal Left Anterior Descending to Mid Left Anterior Descendin% stenosis treated with a Balloon, AB TREK 2.50X12 RX BALLOON, AB TREK 2.50X12 RX BALLOON, MDT R JODY 3.0X22 FABIO, and MDT NC EUPHORA RX [id number] BALLOON. 0% residual stenosis, MITALI: 3 flow. * Mid Left Anterior Descendin% stenosis treated with a MDT R JODY 2.75X30 FABIO, and MDT NC EUPHORA RX [id number] BALLOON. 0% residual stenosis, MITALI: 3 flow. Conclusions 1. Total thrombotic occlusion of mid LAD 2. . 3. Severe 4. stenosis of proximal LAD. S/p successful revascularization with FABIO x2.. 5. Proximal Left Anterior Descending to Mid Left Anterior Descending was treated with a Balloon, Balloon, Balloon, Drug Eluting Stent, and Balloon. 6. Mid Left Anterior Descending was treated with a Drug Eluting Stent, and Balloon. Recommendations * Aggressive risk factor modification. * Transfer back to CSU. * Dual antiplatelet therapy with aspirin and Plavix for at least 1 year. * High intensity statin therapy. * Patient has moderate to severe proximal RCA stenosis. He will need stress test as outpatient to evaluate ischemia. * Outpatient cardiology follow-up in 4 weeks. Interventional RX Recommendation: PCI w/o planned CABG Diagnostic RX Recommendation: PCI w/o planned CABG Anticoagulation: Heparin Pressures Phase:Rest AO : 102 / 59 ( 77 ) @ 1:21:43 PM 50 / 30 ( 48 ) @ 1:21:43 PM 109 / 59 ( 78 ) @ 1:21:43 PM 127 / 70 ( 92 ) @ 1:21:43 PM 86 / 39 ( 59 ) @ 1:21:43 PM 98 / 39 ( 60 ) @ 1:21:43 PM 95 / 80 ( 88 ) @ 1:21:43 PM 109 / 64 ( 84 ) @ 1:21:43 PM 166 / 57 ( 91 ) @ 5:49:00 PM Clinical Evaluation EBL: 5mL-10mL Procedural Details Pre-Procedure Time Out. Identified patient by full name and date of as verbalized by the patient/guarantor. Does the consent match the physician's order: Yes. Accurate & Complete Informed Consent: Yes. Inpatient/Outpatient History & Physical on Chart: Yes. If H&P is completed, is and addenduem needed: No. Visualize and Verify Site with Patient/Guarantor: N/A. Relevant Radiology Images available: Yes. Pre-op teaching completed and patient verbalized understanding. The risks, benefits, and alternatives of sedation and/or procedure were discussed by physician. The patient agrees to continue. Procedure started. [facility] Clinical Fraility Score: 3: Managing Well. 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 Chest Pain Symptom Assessment: Typical Angina Symptoms. Cardiovascular Instability: No. Correct patient, site and procedure confirmed by cath team. Current diagnosis: NSTEMI. PERRLA. Strong, equal hand loans officer bilaterally. Lungs clear x 5 lobes. IV Site on Arrival: 18 gauge in the left anticubital. IV Site on Arrival: 18 gauge in the right anticubital. IV Fluids: 0.9% NaCl at KVO. 100 mL infused prior to labor/excavator. PERRLA. Strong, equal hand loans officer bilaterally. Lungs clear x 5 lobes. Pre Procedural Pulses: bilateral radial was 2+. Oxygen started at 2liters/min via nasal canula. right groin was prepped with chloroprep then draped in the usual sterile fashion. right radial was prepped with chloroprep then draped in the usual sterile fashion. Baseline sample Acquired. HR: 57 BPM. Physician notified. Physician arrived. Patient's family in the labor/excavator waiting room. Dr. Lowery will update at the completion of the case. Equipment: 6F - Radial. Cardiac Cath Pack. ACIST Manifold Kit Model BT 2000. Heparinized Saline (2 units/mL), 1000 mL bag. Physician scrubbed in. Immediate Pre-Procedure Time Out. Correct Patient: Yes; Correct Procedure: Yes; Correct Site: Yes; Correct Patient Position: Yes; Correct Supplies: Yes; Dried Flammable Prep: Yes; Blood Products Available: N/A. Lidocaine 1% infiltrated to the right radial. Arterial access obtained. A 5 slovak TIG catheter in over the exchange J wire. Unable to cannulate TIG, out over the exchange J wire. A 5 slovak JR4 catheter in over the exchange J wire. Multiple views taken of right coronary artery. Catheter removed over the exchange J wire. 6 slovak XB 3.5 guide catheter was inserted over the exchange J wire. ACT drawn. Results 185 seconds. Therapeutic limits - pre-heparin administration 90-150 seconds and monitoring heparin during a vascular procedure >250 seconds. Heparin drip was discontined on cath labs arrival to CSU. Multiple views taken of left coronary artery. Runthrough guidewire was advanced through the guide catheter to lesion in the prox LAD. Inflation number : 1 A AB TREK 2.50X12 RX BALLOON was prepped and advanced across the Prox LAD , then inflated to 4 YAHAIRA for 0:15 seconds. Balloon out. Results checked. Runthrough guidewire was advanced through the guide catheter to lesion in the diaganol. ACT drawn. Results 306 seconds. Therapeutic limits - pre-heparin administration 90-150 seconds and monitoring heparin during a vascular procedure >250 seconds. AP pads were placed on the patient. Runthrough wire in the diagonal removed. Inflation number : 2 A AB TREK 2.50X12 RX BALLOON was prepped and advanced across the Prox LAD , then inflated to 12 YAHAIRA for 0:18 seconds. Inflation number: 3 The AB TREK 2.50X12 RX BALLOON was reinflated across the Prox LAD, to 12 YAHAIRA for 0:09 seconds. Balloon out. Results checked. Runthrough guidewire was advanced through the guide catheter to lesion in the diaganol. Runthrough wire in the diagonal pulled back into the guide. Inflation number : 4 A AB TREK 2.50X12 RX BALLOON was prepped and advanced across the Prox LAD , then inflated to 12 YAHAIRA for 0:12 seconds. Inflation number: 5 The AB TREK 2.50X12 RX BALLOON was reinflated across the Prox LAD, to 12 YAHAIRA for 0:12 seconds. Runthrough wire in the diagonal removed. Balloon out. Results checked. IVUS catheter in. Ringdown and recording performed of the LAD pre stenting. IVUS catheter out. Inflation Number : 1 A MDT R JODY 2.75X30 FABIO -Lot Number# [id number] was prepped and advanced across the Mid LAD. The stent was deployed at 12 YAHAIRA for 0:21 seconds. Exp 2022-11-15. Stent balloon out over wire. Inflation Number : 7 A MDT R JODY 3.0X22 FABIO -Lot Number# [id number] was prepped and advanced across the Prox LAD. The stent was deployed at 12 YAHAIRA for 0:22 seconds. Exp 2024-07-26. ACT drawn. Results 385 seconds. Therapeutic limits - pre-heparin administration 90-150 seconds and monitoring heparin during a vascular procedure >250 seconds. Inflation number : 2 A MDT NC EUPHORA RX 3.21S75NQ BALLOON was prepped and advanced across the Mid LAD , then inflated to 8 YAHAIRA for 0:14 seconds. Inflation number: 3 The MDT NC EUPHORA RX 3.61A62YF BALLOON was reinflated across the Mid LAD, to 12 YAHAIRA for 0:18 seconds. Inflation number: 7 The MDT NC EUPHORA RX 3.30Q76JK BALLOON was reinflated across the Prox LAD, to 12 YAHAIRA for 0:11 seconds. Balloon out. Results checked. IVUS catheter in. Ringdown and recording performed of the LAD post stenting. IVUS catheter out. Runthrough Wire out of the LAD. Runthrough guidewire was advanced through the guide catheter to lesion in the diaganol. Trek 2.5 x 12 balloon unable to cross, removed intact. Trek mini 2.0 x 12 unable to cross, removed intact. The family was updated by Leroy Villarreal RN, PUBLIC RELATIONS PLAYER. Inflation number : 1 A AB MINI TREK 1.20X12 RX BALLOON was prepped and advanced across the 2nd Diag , then inflated to 12 YAHAIRA for 0:13 seconds. Balloon out. Wire out. Inflation number : 1 A AB TREK 2.50X12 RX BALLOON was prepped and advanced across the 1st Diag , then inflated to 9 YAHAIRA for 0:08 seconds. Balloon out. Results checked. Wire out. ACT drawn. Results 372 seconds. Therapeutic limits - pre-heparin administration 90-150 seconds and monitoring heparin during a vascular procedure >250 seconds. Guide catheter out. Dr. Lowery scrubbed out and updated the family. A TR Band was successful obtaining hemostatsis at the Right Radial artery insertion site. TR band placed. Hemostasis obtained. Post Procedure: Pulses reassessed and unchanged. PERRLA. Strong, equal hand loans officer bilaterally. No VTE prophylaxis required. Medication's Wasted: Nitro = 49.6 mg. Medication's Wasted: Heparin = 2000 Units. Medication's Wasted: Other = Fentanyl 50 mcg. Total IV fluids: 346 mL. PCI Indication: NSTE. Post-op diagnosis: PCI of the Prox & Mid LAD, PTCA of the 1st & 2nd Diagonal, Moderate RCA disease. Complications: none. Estimated blood loss: 5mL-10mL. Responsiveness - Normal response to verbal stimuli; alert and oriented, PERRLA. Airway - Unaffected, no intervention required; spontaneous ventilation. Circulation: W/N/L, pulses unchanged. Nausea/Vomiting: No. Procedure completed. Patient transferred by bed to 1st floor. Vital chart was stopped. Access Site Site: Right Radial artery Sheath Size: 6 Fr Hemostasis Method: TR Band Hemostasis Success: Successful Procedure Medications Start: 5:44 PM Stop: 5:44 PM Medication: Versed Amount: 1 mg Route: I.V. Start: 5:44 PM Stop: 5:44 PM Medication: Fentanyl Amount: 50 mcg Route: I.V. Start: 5:45 PM Stop: 5:45 PM Medication: Versed Amount: 1 mg Route: I.V. Start: 5:45 PM Stop: 5:45 PM Medication: Nitrogylcerin Amount: 200 mcg Route: I.A. Start: 5:47 PM Stop: 5:47 PM Medication: Heparin Amount: 3000 units Route: I.V. Start: 5:58 PM Stop: 5:58 PM Medication: Versed Amount: 1 mg Route: I.V. Start: 6:07 PM Stop: 6:07 PM Medication: Heparin Amount: 5000 units Route: I.V. Start: 6:19 PM Stop: 6:19 PM Medication: 0.9% Saline Amount: 250 ml Route: I.V. bolus Start: 6:29 PM Stop: 6:29 PM Medication: Heparin Amount: 2000 units Route: I.V. Start: 6:34 PM Stop: 6:34 PM Medication: Heparin Amount: 1000 units Route: I.V. Start: 6:45 PM Stop: 6:45 PM Medication: Heparin Amount: 1000 units Route: I.V. Start: 6:51 PM Stop: 6:51 PM Medication: Heparin Amount: 1000 units Route: I.V. Start: 6:57 PM Stop: 6:57 PM Medication: Nitrogylcerin Amount: 200 mcg Route: I.C. Start: 7:02 PM Stop: 7:02 PM Medication: Versed Amount: 1 mg Route: I.V. Start: 7:03 PM Stop: 7:03 PM Medication: Heparin Amount: 1000 units Route: I.V. Start: 7:17 PM Stop: 7:17 PM Medication: Aspirin Amount: 325 mg Route: P.O. I, the attending physician, have reviewed and verified all procedure medications. Yes, all medications given per verbal order History/Risk Factors Hypertension: Yes Dyslipidemia: No Peripheral Arterial Disease (PAD): No Myocardial Infarction (CA): No Obesity: No Renal Disease: No Tobacco Use: Never Prior Interventions PCI: No CABG: No Valve Surgery: No Report Signatures Finalized by Aj Lowery MD on 08/30/2022 06:58 PM
--- NOTE | 2022-08-23 18:50 | PC.NURSE ---
received into room 103 from er at 1530.report received.pt is alert and oriented and denies any pain at present.sb on monitor.on heparin and ntg drip.dr bailey into see pt and decided to take pt to cardiac labels molder.pt prepped and sent to labels molder at 1730.
--- NOTE | 2022-08-23 19:24 | W.PM.OPSUD ---
Surgery/Procedure H&P Update DATE OF PROCEDURE: August 23, 2022 DATE H&P PERFORMED: 08/23/22 H&P UPDATE INFORMATION: I have reviewed H&P completed within last 30 days, I have examined patient prior to procedure and No changes to prior documentation PREOP DIAGNOSIS: NSTEMI PRIMARY INDICATION FOR PROCEDURE: NSTEMI PLANNED PROCEDURE: Left heart cath with possible percutaneous coronary intervention PATIENT REASSESSED PRIOR TO SEDATION, WITH NO CHANGE NOTED: Yes PHYSICAL EXAM: alert, oriented x 3, clear to auscultation bilaterally and regular rate & rhythm AIRWAY EVAL/ANESTHESIA PLAN: normal airway, ASA III, Local Anesthesia, Risks, benefits & alternatives of sedation and/or procedure discussed and Patient agrees to continue as planned ADDITIONAL INFORMATION: Moderate sedation
--- NOTE | 2022-08-23 21:43 | PC.NURSE ---
Started removing 3 ml air from TR band at 15 min intervals without any new drainage from right radial puncture site. When removing TR band puncture site began to ooze. 2x2 drsg placed and TR band replacd over site with 3 ml air.
[2022-08-24 03:34] VITALS: BP 111/65; PULSE 73; RESP 17; TEMP 36.9; O2SAT 95
[2022-08-24 04:40] LABS: Basophils % 0.7 %; Eosinophils # 0.3 10^3/uL (0.0-0.8); Eosinophils % 4.5 %; Hematocrit 42.3 % (42.0-52.0); Hemoglobin 14.1 g/dL (11.7-16.6); Lymphocytes # 1.4 10^3/uL (0.8-4.8); Lymphocytes % 23.4 %; Mean Corpuscular HGB Conc 33.3 g/dL (30.0-36.0); Mean Corpuscular Hemoglobin 30.6 pg (28.0-34.0); Mean Corpuscular Volume 91.8 fl (80-94); Mean Platelet Volume 10.1 fL (7.4-10.4); Monocytes # 0.6 10^3/uL (0.2-0.9); Monocytes % 10.7 %; Neutrophils # 3.49 10^3/uL (1.8-7.7); Neutrophils % 60.5 %; Nucleated Red Blood Cells % 0 %; Platelet Count 168 10^3/cmm (130-400); Red Blood Count 4.61 10^6/uL (4.1-5.3); Red Cell Distribution Width 13.3 % (12.1-15.1); White Blood Count 5.8 10^3/uL (4.0-10.0)
[2022-08-24 04:41] LABS: Anion Gap 11.1 (5-19); Blood Urea Nitrogen 18 mg/dL (8-23); Calcium 7.8 mg/dL (8.5-10.5); Carbon Dioxide 23 mmol/L (22-29); Chloride 104 mmol/L (98-107); Glomerular Filtration Rate 74.1 mL/min (90-130); Glucose 83 mg/dL (65-115); Osmolality Calculated 279 mOsm/kg (285-295); Potassium 4.1 mmol/L (3.5-5.1); Sodium 134 mmol/L (136-145)
[2022-08-24 05:37] VITALS: BP 102/57; PULSE 51; RESP 3; O2SAT 96
[2022-08-24] MEDS: sodium chloride 0.9% 1,000 ML 100 ML IV (05:56)
[2022-08-24 06:00] VITALS: PULSE 63
[2022-08-24 08:00] VITALS: BP 120/75; PULSE 67; RESP 22; TEMP 37; O2SAT 95; O2SAT 96
--- NOTE | 2022-08-24 08:38 | PM.PN ---
Subjective Subjective: Patient underwent coronary angiogram last evening that showed severe proximal LAD stenosis, moderate diagonal proximal stenosis, totally occluded mid LAD, moderate to severe proximal RCA stenosis. He underwent successful revascularization of LAD with FABIO x2. Balloon angioplasty of first diagonal artery was performed. RCA stenosis appears to moderate to severe and will be assessed with a stress test as outpatient. Patient is doing well. He is chest pain-free. Vitals/I&O/Wt Last Vital Signs Temp 98.6 F 08/24/22 08:00 Pulse 67 08/24/22 08:00 Resp 22 H 08/24/22 08:00 BP 120/75 08/24/22 08:00 Pulse Ox 96 08/24/22 08:00 O2 Del Method 08/24/22 03:34 08/23/22 08/24/22 08/24/22 22:59 06:59 14:59 Intake Total 548 / 549.5 Output Total 740 / 740 480 / 1220 Balance -192 / -190.5 -480 / -670.5 Weight last 48 hrs Weight 241 lb 3 oz Weight 242 lb Physical Exam Narrative: GENERAL: Patient is alert, awake and oriented x3. [] NECK: No jugular vein distension. [] HEENT: No cyanosis. No icterus. No pallor. [] HEART: Regular S1 and S2. No murmur, rub or gallop. [] LUNGS: Clear to auscultate bilaterally. [] ABDOMEN: Soft, nontender and nondistended. Positive bowel sounds. No guarding, rebound or tenderness. [] CENTRAL NERVOUS SYSTEM: Grossly nonfocal. [] EXTREMITIES: Lower extremities with no edema bilaterally. Pulses palpable in the lower extremities, both dorsalis pedis and posterior tibial. [] Data 08/24/22 04:02 08/24/22 04:02 A&P Assessment and plan (1) NSTEMI (non-ST elevated myocardial infarction): (2) CKD (chronic kidney disease): (3) Hypertension: Plan Patient had presented with typical chest pain symptoms. EKG changes were dynamic and were consistent with Wellens sign on repeat EKG. Patient was taken to the cardiac Fagoting Machine Operator yesterday evening. Above-mentioned anatomy with severe proximal LAD stenosis and totally occluded mid LAD. Patient underwent successful revascularization with FABIO x2. RCA also has proximal moderate to severe stenosis. It will be assessed with a stress test as an outpatient. If inferior wall ischemia is noted, we will proceed with PCI. Continue aspirin and Plavix for at least 1 year High intensity statin therapy Patient will benefit from low-dose metoprolol 12.5 mg twice daily. Echocardiogram is pending. Thank you for involving us with care of this patient. Patient is stable to be discharged from cardiac standpoint after echocardiogram is finalized. Please call with questions. Attestations Medical Necessity Statement*: Care not expected to cross 2 midnights. Coding Level of Care Code Acute [facility] for [facility] Fwd Diagnoses NSTEMI (non-ST elevated myocardial infarction) I21.4 CKD (chronic kidney disease) N18.9 Hypertension I10
[2022-08-24] MEDS: aspirin 81 mg EC Tablet PO (08:59)
[2022-08-24] MEDS: pantoprazole DR 40 mg Tablet PO (08:59)
[2022-08-24] MEDS: clopidogrel 75 mg Tablet PO (08:59)
--- NOTE | 2022-08-24 09:45 | PC.CHAP ---
Pastoral Care Encounter/Spiritual Assessment Type of Contact [] Declined access clinician visit [] Patient/Family/Request visit [] Outpatient visit [] Follow-up visit [] Physician referral [] Code/Alert [x] Routine visit [] Staff referral [] Actively dying [] Patient sleeping [x] Family support [] [] Out of room [] Palliative care [] [] Receiving care in room [] Pre-surgical visit [] Trauma [] Long length of stay [] ICU visit [] Other: Relational/Emotional Strength [x] Patient feels connected with others/family/visitors/staff [] Distress [] Loneliness/isolation [] Abandonment Spirituality of Patient [x] Person of [place]idre [] Attends Jehovah[employer] Witness of their [place] [x] Believes in Prayer [] Reads Bible or Protestant materials [] There are Spiritual issues to be addressed Basket Operator Interventions [x] Prayer [] Active listening [] Non-anxious presence [] Spiritual/emotional support [] Crisis/trauma care [] Spiritual counseling [] Bereavement support [] Provided bereavement packet [] Provided Bible/devotional materials [] Provided toy/stuffed animal, coloring book to patient or family member [] Provided Communion [] Anointing/[place] [] Salvation [x] Completed spiritual assessment [] Other: Impact on Illness or Injury [] Angry [] Fearful [] Anxious [] Often cries [] Exhaustion [] Unable to work [] Unable to attend orthodoxy [] Unable to walk/stand [] Unable to read [] Unable to drive [] Unable to eat/drink [] Unable to sleep [] Unable to be with family [] Patient intubated [] Other: Summary Time spent with patient 5 min
--- NOTE | 2022-08-24 10:01 | PM.DCS ---
Discharge Providers Date of Admission: 08/23/22 15:09 Date of Discharge: August 24, 2022 Attending Provider at Admission: Iesha Keen MD Attending Provider at Discharge: Iesha Keen MD Primary Care Provider: Wilfredo Jeter MD Diagnoses at Discharge Discharge Diagnosis (1) NSTEMI (non-ST elevated myocardial infarction): Status: Acute (2) CKD (chronic kidney disease): Status: Acute (3) Hypertension: Status: Acute Reason for Visit Reason for Visit: chest pain and arm hurts Hospital Course Hospital Course Orlando Tam is a 67 year old male with a past medical history of psoriatic arthritis on Cosentyx, presented to the emergency room with chief complaint of chest pain.Initial EKG did not meet STEMI criteria.? His chest pain resolved with administration of nitro drip and heparin drip.? Subsequent EKGs did show dynamic EKG changes in anterior/anterolateral leads concerning for Wellens sign.? Initial troponin was 42 that has trended up to 69 at 2 hours. Patient underwent coronary angiogram last evening that showed severe proximal LAD stenosis, moderate diagonal proximal stenosis, totally occluded mid LAD, moderate to severe proximal RCA stenosis.? He underwent successful revascularization of LAD with FABIO x2.? Balloon angioplasty of first diagonal artery was performed.? RCA stenosis appears to moderate to severe and will be assessed with a stress test as outpatient. Patient is doing well.? He is chest pain-free at time of discharge. If inferior wall ischemia is noted, plan to proceed with PCI as outpatient. Recommended to continue aspirin and Plavix for at least 1 year High intensity statin therapy . Patient will benefit from low-dose metoprolol 12.5 mg twice daily per cardiology. Baseline HR 50-60bpm.Echo pending at discharg, to be followed up in one week. Physical Exam Narrative: General: No acute distress, AO x3 HEENT: PERRLA, pupils bilaterally equal and reactive, pallors not present Chest: Normal vesicular breath sounds, no added sounds, equal good air entry bilaterally CVS: S1-S2 regular, no murmurs, no tachycardia, no gallops, no rubs Abdomen: Soft, nontender, no organomegaly, bowel sounds present Neuro: No focal deficits, no facial deformity, AO x3, power 5/5 in all limbs Discharge Data Studies Completed and Pending Completed Studies During Hospitalization Category Date Time Status XR chest 1V portable [id number] Stat Exams 08/23/22 10:31 Completed Pending at discharge Category Date Time Status BEHAVIOR INTERVENTIONIST request for service Routine Exams 08/23/22 17:34 Taken CV. echo complete* [id number] Routine Ultrasound 08/23/22 15:23 Taken Radiology Impressions Chest X-Ray 08/23/22 10:31 Impression: Atherosclerosis and hiatal hernia. Laboratory Results WBC 5.8 10^3/uL (4.0-10.0) 08/24/22 04:02 RBC 4.61 10^6/uL (4.1-5.3) 08/24/22 04:02 Hgb 14.1 g/dL (11.7-16.6) 08/24/22 04:02 Hct 42.3 % (42.0-52.0) 08/24/22 04:02 MCV 91.8 fl (80-94) 08/24/22 04:02 MCH 30.6 pg (28.0-34.0) 08/24/22 04:02 MCHC 33.3 g/dL (30.0-36.0) 08/24/22 04:02 RDW 13.3 % (12.1-15.1) 08/24/22 04:02 Plt Count 168 10^3/cmm (130-400) 08/24/22 04:02 MPV 10.1 fL (7.4-10.4) 08/24/22 04:02 Neut % (Auto) 60.5 % 08/24/22 04:02 Lymph % (Auto) 23.4 % 08/24/22 04:02 Hyde % (Auto) 10.7 % 08/24/22 04:02 Eos % (Auto) 4.5 % 08/24/22 04:02 Baso % (Auto) 0.7 % 08/24/22 04:02 Neut # (Auto) 3.49 10^3/uL (1.8-7.7) 08/24/22 04:02 Lymph # (Auto) 1.4 10^3/uL (0.8-4.8) 08/24/22 04:02 Hyde # (Auto) 0.6 10^3/uL (0.2-0.9) 08/24/22 04:02 Eos # (Auto) 0.3 10^3/uL (0.0-0.8) 08/24/22 04:02 Baso # (Auto) 0.0 10^3/uL (0.0-0.1) 08/24/22 04:02 Nucleated RBC % (auto) 0 % 08/24/22 04:02 Nucleated RBCs # 0.0 /100WBC 08/24/22 04:02 PT 13.50 SECONDS (12.1-14.9) 08/23/22 10:20 INR 1.00 (0.8-1.2) 08/23/22 10:20 APTT 27.8 SECONDS (23.9-36.7) 08/23/22 10:20 Sodium 134 mmol/L (136-145) L 08/24/22 04:02 Potassium 4.1 mmol/L (3.5-5.1) 08/24/22 04:02 Chloride 104 mmol/L (98-107) 08/24/22 04:02 Carbon Dioxide 23 mmol/L (22-29) 08/24/22 04:02 Anion Gap 11.1 (5-19) 08/24/22 04:02 BUN 18 mg/dL (8-23) 08/24/22 04:02 Creatinine 1.0 mg/dL (0.7-1.2) 08/24/22 04:02 GFR Calculation 74.1 mL/min (90-130) L 08/24/22 04:02 Glucose 83 mg/dL (65-115) 08/24/22 04:02 Estimat Average Glucose 105 08/23/22 15:38 Hemoglobin A1c 5.3 % (4.0-6.0) 08/23/22 15:38 Calculated Osmolality 279 mOsm/kg (285-295) L 08/24/22 04:02 Calcium 7.8 mg/dL (8.5-10.5) L 08/24/22 04:02 Total Bilirubin 0.4 mg/dL (0.15-1.2) 08/23/22 10:20 AST 24 U/L (0-40) 08/23/22 10:20 ALT 24 U/L (0-41) 08/23/22 10:20 Alkaline Phosphatase 68 U/L (40-130) 08/23/22 10:20 Troponin T Baseline 42 ng/L (0-15) H 08/23/22 10:20 Troponin T 120 Minute 69.96 ng/L (0-15) H 08/23/22 12:13 Delta Troponin T 27.96 ABS# (0-10) H* 08/23/22 12:13 Troponin T Hi Sens 6Hr 138.4 ng/L (0-15) H 08/23/22 16:34 Troponin T Hi Sens 6Hr Delta 96.4 ng/L (0-12) H* 08/23/22 16:34 NT-Pro-B Natriuret Pep 123 pg/mL (0-125) 08/23/22 10:20 Total Protein 7.4 g/dL (6.6-8.7) 08/23/22 10:20 Albumin 4.3 g/dL (3.5-5.2) 08/23/22 10:20 Globulin 3.1 g/dL (1.3-4.6) 08/23/22 10:20 Triglycerides 61 mg/dL (0-150) 08/23/22 15:38 Cholesterol 193 mg/dL (0-200) 08/23/22 15:38 LDL Cholesterol, Calc 140 mg/dL (50-129) H 08/23/22 15:38 HDL Cholesterol 41 mg/dL (60-100) L 08/23/22 15:38 LDL/HDL Ratio 3.41 RATIO (0.00-3.22) H 08/23/22 15:38 Cholesterol/HDL Ratio 4.71 mg/dL (1.0-5.00) 08/23/22 15:38 TSH 0.87 uIU/mL (0.27-4.20) 08/23/22 15:38 Vitals Last Vital Signs Temp 98.6 F 08/24/22 08:00 Pulse 67 08/24/22 08:00 Resp 22 H 08/24/22 08:00 BP 120/75 08/24/22 08:00 Pulse Ox 95 08/24/22 08:00 O2 Del Method 08/24/22 08:00 Discharge Plan Discharge Patient Disposition: Home Condition: Stable Prescriptions: New clopidogrel 75 mg Tablet 75 mg PO DAILY 30 Days Qty: 30 1RF aspirin 81 mg Tablet,Delayed Release (Dr/Ec) 81 mg PO DAILY 30 Days Qty: 30 1RF atorvastatin 40 mg Tablet 40 mg PO BEDTIME 30 Days Qty: 30 1RF metoprolol tartrate 25 mg tablet 12.5 mg PO BID 30 Days Qty: 30 0RF Continued esomeprazole magnesium [Nexium] 20 mg capsule,delayed release(DR/EC) 20 mg PO DAILY ipratropium bromide 21 mcg (0.03 %) spray,non-aerosol 2 spray INTRANASAL TID Qty: 30 3RF Rx Instructions: administer into each nostril prednisone 10 mg tablet See Rx Instructions .ROUTE .COMPLEX Qty: 60 1RF Dose Instruction: TAKE 1 TABLET BY MOUTH EVERY DAY FOR 3 TO 5 DAYS NEEDED FOR FLARE OR JOINT PAIN Rx Instructions: TAKE 1 TABLET BY MOUTH EVERY DAY FOR 3 TO 5 DAYS NEEDED FOR FLARE OR JOINT PAIN Cosentyx Pen (2 Pens) 150 mg/mL pen injector 300 mg SUBCUT .[id number] Qty: 2 3RF Discharge Orders: Discharge Order (Routine); Ordered 08/24/22 Ordered By: Iesha Keen Referrals: Wilfredo Jeter MD [Primary Care Provider] - Aj Lowery M.D [Physician] - 1 month Berenice Lemus FNP [Nurse Practitioner] - 1 week Discharge Diet: Cardiac Discharge Activity: Increase activity as tolerated Patient Instructions: Opioid Safety Discharge Attestations Time Spent in Discharge Care*: greater than 30 min Quality Metrics Clinical Quality Measures [ No reported AMI, CVA or VTE this stay] Coding Level of Care Code Acute [facility] note Diagnoses NSTEMI (non-ST elevated myocardial infarction) I21.4 CKD (chronic kidney disease) N18.9 Hypertension I10
[2022-08-24 10:38] VITALS: BP 120/75; PULSE 67; RESP 22; TEMP 37; O2SAT 95
--- NOTE | 2022-08-24 13:40 | PC.NURSE ---
Patient education provided and follow up appointments scheduled. VS stable upon departure. Pt left accompanied by spouse.
== END 2022-08-24 13:41 | disposition home or self-care (01) | DRG 247 ==
LOC: ER 10:59 → CSU 14:51
PROVIDERS: Internal Medicine; Admitting Provider Student in an Organized Health Care Education/Training Program; Emergency Provider Family Medicine; PCP Family Medicine Adult Medicine; Visit Provider Student in an Organized Health Care Education/Training Program
PROC: 027135Z Dilation of Coronary Artery, Two Arteries with Two Drug-eluting Intraluminal Devices, Percutaneous Approach (ICD-10-PCS; principal; 2022-08-23 18:00)
PROC: 027135Z Dilation of Coronary Artery, Two Arteries with Two Drug-eluting Intraluminal Devices, Percutaneous Approach (ICD-10-PCS; 2022-08-23 18:00)
DX: I21.4 Non-ST elevation (NSTEMI) myocardial infarction (principal); I12.9 Hypertensive chronic kidney disease with stage 1 through stage 4 chronic kidney disease, or unspecified chronic kidney disease; N18.9 Chronic kidney disease, unspecified; L40.50 Arthropathic psoriasis, unspecified; Z79.52 Long term (current) use of systemic steroids; Z86.718 Personal history of other venous thrombosis and embolism
CPT/HCPCS: 36415; 71045; 80048; 80053; 80061; 80076; 82565; 83036; 83880; 84443; 84484; 85025; 85347; 85610; 85730; 86140; 92978; 93005; 93306; 93454; 96365; 96366; 96375; 99152; 99153; 99291; C1725; C1753; C1769; C1874; C1887; C1894; C9600; J0461; J1644; J2250; J3010; J3490; J7030; Q9967

== ENCOUNTER → 2022-09-04 09:00 | Outpatient (BNVA) | payer MEDICARE, SELFPAY | PROVIDERS: PCP Family Medicine Adult Medicine; Visit Provider Nurse Practitioner Family | DX: I25.10 Atherosclerotic heart disease of native coronary artery without angina pectoris (principal) | CPT/HCPCS: 99214 ==

== ENCOUNTER 2022-10-04 06:26 | Outpatient (CLI) | payer MEDICARE, SELFPAY ==
[2022-10-04 06:44] VITALS: BMI 33.7
--- NOTE | 2022-10-04 06:45 | ECG_ITS ---
[facility] Test Date: 2022-10-04 Pat Name: Orlando Tam Department: Room: Gender: Male Hide Cleaner: Windy Kang : 1955 Requested By: Berenice Lemus Order Number: [id number] Pan MD: Neetu Molina M.D. Interpretive Statements NAME OF STUDY: LEXISCAN SESTAMIBI STRESS TEST INDICATION: Chest Pain, PROCEDURE: At the baseline, the EKG revealed sinus bradycardia with Q waves in the high lateral leads, suggesting possible old lateral wall myocardial infarction. The baseline heart was 48 bpm with a blood pressue of 142/66 mm of Hg Lexiscan was infused over a period of 20 seconds. A total of 0.4 milligrams of Lexiscan was infused. The stress phase was continued for a total of 5 minutes. Heart rate at the end of the stress phase was 72 bpm with a blood pressure 134/75 mm of Hg. The EKG at the peak infusion revealed no significant changes. Sestamibi was injected 20 seconds after the Lexiscan infusion. Heart rate at the end of the recovery phase was 69 bpm with a blood pressure of 132/75 mm of Hg. CONCLUSION: 1. No significant EKG changes with the LexiScan infusion 2. No LexiScan induced chest pain or cardiac arrhythmia 3. Normal blood pressure and heart rate response 4. Sestamibi/sestamibi perfusion scan pending; see separate report. Electronically Signed On 10-06-2022 14:07:57 FRONT DESK COORDINATOR by Neetu Molina M.D. [id number]
--- NOTE | 2022-10-04 06:46 | NMCV_ITS ---
NM stephanie perf SPECT r/s* [id number] Orlando Tam Age: 67 Gender: M : 1955 Exam Date: 10/04/2022 07:24 Ordering Phys: Berenice Lemus Technologist: BENSON Cintron Exam Location: [facility] Indications: MYOCARDIAL INFARCTION STRESS TEST [facility] IMAGE PROTOCOL Rest/Stress 1 Lexiscan Day Radiopharmaceutical Dose (mCi) Administration Site Administered by Rest: Tc-99m 10.9 IV BENSON [place] Sestamibi Stress:Tc-99m 32.6 IV BENSON [place] Sestamibi Rest: 04-Oct-2022 60 Discovery 630 Stress: 04-Oct-2022 30 Discovery 630 0.4mg Lexiscan. Images obtained in supine and prone position. SPECT RESULTS Technical Quality: Excellent Raw Data Analysis: Normal Image Corrections: No attenuation or motion correction applied Summed Stress Score: 3 Summed Rest Score: 4 Summed Difference Score: 2 PERFUSION FINDINGS Small to moderate area of slightly decreased tracer uptake was noted in the basal, mid and apical inferior wall regions. Subtle area of reversibility was noted in the mid inferior wall region. FUNCTIONAL RESULTS (calculated via Gated SPECT) Stress Image LV EF (%): 72 Stress EDV (mL):108 TID: 1.09 Stress ESV (mL):30 FUNCTIONAL FINDINGS: Segmental wall motion analysis revealed no gross wall motion abnormalities IMPRESSIONS 1. Myocardial perfusion imaging revealing small to moderate area of slightly decreased tracer uptake in inferior wall region with some reversibility, suggesting myocardial scarring with ischemia in the distribution of the right coronary artery. 2. Normal LV ejection fraction of 72%. 3. LV wall motion analysis revealing no gross wall motion abnormalities. 4. Normal LV volume No similar previous studies are available for comparison Dr Neetu Molina MD [facility] (Electronically Signed) Final Date: 04 October 2022 13:28 S
[2022-10-04] MEDS: regadenoson 0.4 Mg/5 ml Syringe IVP (08:10)
[2022-10-04 08:30] VITALS: BP 132/75; PULSE 69
== END 2022-10-04 06:27 | disposition home or self-care (01) ==
PROVIDERS: PCP Family Medicine Adult Medicine; Visit Provider Nurse Practitioner Family
DX: I21.4 Non-ST elevation (NSTEMI) myocardial infarction (principal); I25.10 Atherosclerotic heart disease of native coronary artery without angina pectoris
CPT/HCPCS: 36415; 78452; 80048; 93017; 96374; 99214; A9500; J2785

== ENCOUNTER → 2022-10-05 08:32 | Outpatient (BNVA) | payer MEDICARE, SELFPAY | PROVIDERS: PCP Family Medicine Adult Medicine; Visit Provider Internal Medicine | DX: I25.10 Atherosclerotic heart disease of native coronary artery without angina pectoris (principal); R94.39 Abnormal result of other cardiovascular function study; I12.9 Hypertensive chronic kidney disease with stage 1 through stage 4 chronic kidney disease, or unspecified chronic kidney disease; N18.2 Chronic kidney disease, stage 2 (mild) | CPT/HCPCS: 99214 ==

== ENCOUNTER 2022-10-19 07:39 | Observation (INO) | payer MEDICARE, SELFPAY ==
[2022-10-15 13:46] LABS: Basophils % 0.4 %; Eosinophils % 0.6 %; Hematocrit 43.5 % (42.0-52.0); Lymphocytes # 0.8 10^3/uL (0.8-4.8); Lymphocytes % 14.9 %; Mean Corpuscular HGB Conc 32.2 g/dL (30.0-36.0); Mean Corpuscular Hemoglobin 30.4 pg (28.0-34.0); Mean Corpuscular Volume 94.4 fl (80-94); Monocytes # 0.4 10^3/uL (0.2-0.9); Monocytes % 7.6 %; Neutrophils # 3.83 10^3/uL (1.8-7.7); Neutrophils % 76.1 %; Nucleated Red Blood Cells % 0 %; Platelet Count 163 10^3/cmm (130-400); Red Blood Count 4.61 10^6/uL (4.1-5.3); Red Cell Distribution Width 13.5 % (12.1-15.1)
[2022-10-15 13:58] LABS: INR 1.13 (0.83-1.21); Prothrombin Time (Patient) 14.9 Seconds (12.0-15.1)
[2022-10-15 14:20] LABS: Anion Gap 15.6 (5-19); Blood Urea Nitrogen 24 mg/dL (8-23); Calcium 8.3 mg/dL (8.5-10.5); Carbon Dioxide 22 mmol/L (22-29); Chloride 104 mmol/L (98-107); Glomerular Filtration Rate 66.4 mL/min (90-130); Glucose 119 mg/dL (65-115); Osmolality Calculated 289 mOsm/kg (285-295); Potassium 4.6 mmol/L (3.5-5.1); Sodium 137 mmol/L (136-145)
[2022-10-19] VITALS (57 sets, daily range): BP systolic 105–156; BP diastolic 64–104; PULSE 44–79; RESP 7–26; TEMP 36.8–37; O2SAT 92–98; BMI 33.9
[2022-10-19] MEDS: diphenhydrAMINE 50 mg Capsule PO (05:30)
--- NOTE | 2022-10-19 06:00 | XACV_ITS ---
Exam Room: 2 Ht: 180 cm Wt: 110 kg BSA: 2.39 m2 Gender: Male : 1955 Any Known Allergies: Other Exam Priority: Routine Procedure(s): Procedure Description: Diagnostic procedure Procedure Description: PCI procedure Procedure Description: Coronary IVUS Procedure Description: Drug Eluting Coronary Stent Procedure Description: PTCA Procedure Description: Coronary Angiography Diagnostic Cath Status: Elective Diagnostic Findings * INDICATION: 67 year old male with past medical history of coronary artery disease, hypertension who presented for staged PCI of proximal RCA. * Left Main has no significant disease. * Left Anterior Descending has no disease. Patent recent stents. Second diagonal artery has ostial haziness secondary to jailing with LAD stent. * Circumflex has no significant disease. * Proximal Right Coronary Artery: obstructive 70% stenosis, MITALI: 3 flow. * Coronary angiography shows right dominance. PCI Status: Elective PCI Indication: Staged PCI Interventional Findings * Procedure detail: We engaged RCA with JR4 5 guide catheter. IV heparin was administered to maintain ACT above 250 S. Using 0.014 run-through guidewire we crossed the stenosis and was put in distal vessel. We used IVUS to size the vessel. We predilated the stenosis with 3.5 x 12 mm semicompliant balloon. This was followed with placement of 4.5 x 18 mm resolute Jody drug-eluting stent. We postdilated the stent with 4.5 x 8 mm NC balloon at high pressure. At this time final angiogram was performed that showed excellent stent expansion, no residual stenosis and MITALI-3 flow. Guidewire and guide catheter were removed. Patient left the Juvenile Justice Officer in a stable condition.. * Proximal Right Coronary Artery: 70% stenosis treated with a AB TREK 3.50X12 RX BALLOON, MDT Manolo JODY 4.5X18 FABIO, and MDT KASIE EUPHORA RX [id number] BALLOON. 0% residual stenosis, MITALI: 3 flow. Conclusions 1. Severe proximal RCA stenosis s/p successful revascularization with FABIO x1.. 2. Proximal Right Coronary Artery was treated with a Balloon, Drug Eluting Stent, and Balloon. Recommendations * Dual antiplatelet therapy with aspirin and Plavix for at least 1 year. * High intensity statin therapy. * Outpatient cardiology follow-up in 4-week. Interventional RX Recommendation: PCI w/o planned CABG Diagnostic RX Recommendation: PCI w/o planned CABG Anticoagulation: Heparin Pressures Phase:Rest AO : 111 / 103 ( 88 ) @ 6:32:00 AM 111 / 67 ( 88 ) @ 6:38:00 AM 123 / 76 ( 99 ) @ 6:49:00 AM 98 / 66 ( 81 ) @ 7:04:00 AM Clinical Evaluation EBL: 5mL-10mL Procedural Details Procedure Consent Obtained. Admit Source: Out Patient. Pre-Procedure Time Out. Identified patient by full name and date of as verbalized by the patient/guarantor. Does the consent match the physician's order: Yes. Accurate & Complete Informed Consent: Yes. Inpatient/Outpatient History & Physical on Chart: Yes. If H&P is completed, is and addenduem needed: No; If yes, is the addendum complete: N/A. Visualize and Verify Site with Patient/Guarantor: N/A. Relevant Radiology Images available: N/A. The risks, benefits, and alternatives of sedation and/or procedure were discussed by physician. The patient agrees to continue. Procedure started. [facility] [place] Clinical Fraility Score: 3: Managing Well. Juvenile Justice Officer Indications: positive stress test. Chest Pain Symptom Assessment: Typical Angina Symptoms. Correct patient, site and procedure confirmed by cath team. Current diagnosis: Chest Pain. PERRLA. Strong, equal hand tallier bilaterally. Lungs clear x 5 lobes. IV Site on Arrival: 20 gauge in the right anticubital. IV Fluids: 0.9% NaCl at KVO. 0 mL infused prior to optical lab technician. Pre Procedural Pulses: bilateral radial was 2+. Pre Procedural Pulses: right dorsalis pedis was 2+. Pre Procedural Pulses: left dorsalis pedis was 3+. Pre Procedural Pulses: right posterior tibial was 1+. Pre Procedural Pulses: left posterior tibial was 2+. Oxygen started at 2liters/min via nasal canula. right groin was prepped with chloroprep then draped in the usual sterile fashion. right radial was prepped with chloroprep then draped in the usual sterile fashion. Physician notified. Baseline sample Acquired. HR: 44 BPM. Physician arrived. Physician scrubbed in. Immediate Pre-Procedure Time Out. Correct Patient: Yes; Correct Procedure: Yes; Correct Site: Yes; Correct Patient Position: Yes; Correct Supplies: Yes; Dried Flammable Prep: Yes; Blood Products Available: N/A;. Lidocaine 1% infiltrated to the right radial. Ultrasound requested by physican for access. Arterial access obtained. A 5 scottish JL3.5 catheter in over wire. Multiple views taken of left coronary artery. Catheter removed over the exchange wire. 6 scottish JR 5 guide catheter was inserted over the wire. Multiple views taken of right coronary artery. ACT drawn. Results 354 seconds. Therapeutic limits - pre-heparin administration 90-150 seconds and monitoring heparin during a vascular procedure >250 seconds. Runthrough guidewire was advanced through the guide catheter to lesion in the prox RCA. IVUS catheter inserted over the wire. IVUS run of the MID RCA. IVUS catheter removed. Inflation number : 1 A AB TREK 3.50X12 RX BALLOON was prepped and advanced across the Prox RCA , then inflated to 10 YAHAIRA for 0:17 seconds. Inflation number: 2 The AB TREK 3.50X12 RX BALLOON was reinflated across the Prox RCA, to 10 YAHAIRA for 0:14 seconds. Balloon out. Stent inserted to lesion in the prox RCA. Inflation Number : 3 A RENÉ French JODY 4.5X18 FABIO -Lot Number# [id number] exp date 05/12/2024was prepped and advanced across the Prox RCA. The stent was deployed at 12 YAHAIRA for 0:25 seconds. Stent balloon out over wire. Intact ballon removed, unable to cross lesion. ACT drawn. Results 377 seconds. Therapeutic limits - pre-heparin administration 90-150 seconds and monitoring heparin during a vascular procedure >250 seconds. Guideliner inserted. Wire out. Intact ballon removed, unable to cross lesion. Guideliner removed. IVUS catheter inserted to the Prox RCA. IVUS catherter removed. No run attempted. Balloon inserted to lesion in the prox RCA. Inflation number : 4 A MDT NC EUPHORA RX [id number] BALLOON was prepped and advanced across the Prox RCA , then inflated to 16 YAHAIRA for 0:22 seconds. Inflation number: 5 The MDT NC EUPHORA RX [id number] BALLOON was reinflated across the Prox RCA, to 16 YAHAIRA for 0:19 seconds. Balloon out. Results checked. Guide catheter out. Wire out. A TR Band was successful obtaining hemostatsis at the Right Radial artery insertion site. PERRLA. Strong, equal hand tallier bilaterally. No VTE prophylaxis required. Medication's Wasted: Nitro = 49.6 mg. Medication's Wasted: Heparin = 1000 units. Medication's Wasted: Other = versed 1 mg. Medication's Wasted: Other = fentanyl 50 mcg. Total IV fluids: 124 mL. Post-op diagnosis: severe stenosis of Prox RCA, post PCI 1 stent. Complications: none. Estimated blood loss: 5mL-10mL. Responsiveness - Normal response to verbal stimuli; alert and oriented, PERRLA. Airway - Unaffected, no intervention required; spontaneous ventilation. Circulation: W/N/L, pulses unchanged. Nausea/Vomiting: No. Procedure completed. Patient transferred by wheelchair to 1st floor. Vital chart was stopped. Access Site Site: Right Radial artery Sheath Size: 6 Fr Hemostasis Method: TR Band Hemostasis Success: Successful Procedure Medications Start: 6:16 AM Stop: 6:16 AM Medication: Versed 1 mg and Fentanyl 25 mcg Amount: 1 Route: I.V. Start: 6:22 AM Stop: 6:22 AM Medication: Versed Amount: 1 mg Route: I.V. Start: 6:29 AM Stop: 6:29 AM Medication: Nitrogylcerin Amount: 200 mcg Route: I.A. Start: 6:30 AM Stop: 6:30 AM Medication: Heparin Amount: 9000 units Route: I.V. Start: 6:44 AM Stop: 6:44 AM Medication: Heparin Amount: 1000 units Route: I.V. Start: 6:49 AM Stop: 6:49 AM Medication: Versed 1 mg and Fentanyl 25 mcg Amount: 1 Route: I.V. Start: 7:03 AM Stop: 7:03 AM Medication: Nitrogylcerin Amount: 200 mcg Route: I.C. Start: 7:06 AM Stop: 7:06 AM Medication: Plavix Amount: 300 mg Route: P.O. I, the attending physician, have reviewed and verified all procedure medications. Yes, all medications given per verbal order History/Risk Factors Hypertension: No Dyslipidemia: No Peripheral Arterial Disease (PAD): No Myocardial Infarction ([place]): Yes Obesity: No Renal Disease: No Tobacco Use: Never Prior Interventions PCI: Yes CABG: No Valve Surgery: No Date of PCI: 08/23/2022 Report Signatures Finalized by Aj Lowery MD on 10/23/2022 10:17 AM
--- NOTE | 2022-10-19 06:12 | P.HPUD_ITS ---
Surgery/Procedure H&P Update DATE OF PROCEDURE: October 19, 2022 DATE H&P PERFORMED: 10/05/22 H&P UPDATE INFORMATION: I have reviewed H&P completed within last 30 days, I have examined patient prior to procedure and No changes to prior documentation PREOP DIAGNOSIS: Staged PCI of RCA PRIMARY INDICATION FOR PROCEDURE: Staged PCI of RCA PLANNED PROCEDURE: Operation Date: 10/19/22 07:00 Proposed Procedures p [facility] [address]32 R94.39,I20.0,I21.4(Left) - Aj Lowery M.D Percutaneous coronary intervention PATIENT REASSESSED PRIOR TO SEDATION, WITH NO CHANGE NOTED: Yes PHYSICAL EXAM: alert, oriented x 3, clear to auscultation bilaterally and regular rate & rhythm AIRWAY EVAL/ANESTHESIA PLAN: normal airway, ASA III, Local Anesthesia, Risks, benefits & alternatives of sedation and/or procedure discussed and Patient agrees to continue as planned ADDITIONAL INFORMATION: Moderate sedation
[2022-10-19] MEDS: sodium chloride 0.9% 1,000 ML 100 ML IV (07:35)
--- NOTE | 2022-10-19 11:05 | PC.NURSE ---
received from cardiac receiver/laborer at 0725.report received.pt is alert and oriented x 4.sb on monitor (high 40's-50's).denies pain at present.right radial tr band on and inflated.right hand is warm to touch and with brisk capillary refill.palpable radial pulse noted distal to tr band.no hematoma noted.pt instructed in activity restrictions s/p radial artery procedure...and instructed to notify staff for any bleeding,pain,numbness,sob..or for any concerns at all.pt verb understanding of instructions
--- NOTE | 2022-10-19 15:16 | P.SS_ITS ---
Short Stay Summary Providers Date of Admit/Discharge: 10/19/22 Attending Provider: Aj Lowery M.D Primary Care Provider: Wilfredo Jeter MD Chief Complaint: Staged PCI of RCA HPI History of Present Illness Orlando Tam is a 67 year old male with past medical history of coronary artery disease, hypertension who presented for staged PCI of proximal RCA. Review of Systems Const: Denies: fatigue Card: Denies: chest pain, palpitations, irregular heart rhythm, swelling of feet/ankles, lightheadedness, pre-syncope, dyspnea on exertion, orthopnea or leg pain with exertion Resp: Denies: dyspnea, productive cough or non-productive cough Musc: Denies: neck pain or back pain Psych: Denies: anxiety, depression, suicidal ideation or homicidal ideation Xavier/Lymph: Reports: easy bruising and easy bleeding Home Meds/Allergies Home Medications and Allergies Allergies Allergy/AdvReac Type Severity Reaction Status Date / Time sulfasalazine Allergy Intermediate rash all Verified 10/19/22 05:41 over as a child leflunomide AdvReac Intermediate diarrhea Verified 10/19/22 05:41 methotrexate AdvReac Mild itch all Verified 10/19/22 05:41 over PFSH Acute PFSH: Medical History Atherosclerosis of coronary artery CKD (chronic kidney disease) stage 2, GFR 60-89 ml/min High risk medication use Low back strain Surgical History History of elbow surgery History of mandibular surgery Family History Other CAD (coronary artery disease) Cancer Hyperlipidemia Hypertension Denies family history of Rheumatoid arthritis Diabetes Chronic kidney disease (CKD) Systemic lupus erythematosus (SLE) in adult Stroke Social History Smoking and tobacco status: never smoked Alcohol intake: never History of recent travel: No Vitals/I&O/Wt Last Vital Signs Temp 98.2 F 10/19/22 11:20 Pulse 65 10/19/22 12:55 Resp 22 H 10/19/22 12:55 BP 128/80 10/19/22 12:55 Pulse Ox 96 10/19/22 12:55 O2 Del Method 10/19/22 07:35 10/19/22 10/19/22 10/19/22 06:59 14:59 22:59 Intake Total 1480 / 1480 Output Total 400 / 400 Balance 1080 / 1080 Weight last 48 hrs Weight 243 lb Physical Exam Narrative: GENERAL: Patient is alert, awake and oriented x3. [] NECK: No jugular vein distension. [] HEENT: No cyanosis. No icterus. No pallor. [] HEART: Regular S1 and S2. No murmur, rub or gallop. [] LUNGS: Clear to auscultate bilaterally. [] CENTRAL NERVOUS SYSTEM: Grossly nonfocal. [] EXTREMITIES: Lower extremities with no edema bilaterally. Pulses palpable in the lower extremities, both dorsalis pedis and posterior tibial. [] Hospital Course Hospital Course Patient underwent successful revascularization of the proximal RCA with FABIO x 1. He was observed in the hospital and stayed stable. He was discharged home in a stable condition. SSS Data Data Completed and Pending: Pending at discharge Category Date Time Status [employer] TRANSFER LIAISON request for service Routin e Exams 10/19/22 06:00 Taken Discharge Plan Discharge Patient Disposition: Home Condition: Stable Prescriptions: Continued pantoprazole 40 mg tablet,delayed release (DR/EC) 40 mg PO DAILY Qty: 90 0RF ipratropium bromide 21 mcg (0.03 %) spray,non-aerosol 2 spray INTRANASAL TID Qty: 30 3RF Rx Instructions: administer into each nostril prednisone 10 mg tablet See Rx Instructions .ROUTE .COMPLEX Qty: 60 1RF Dose Instruction: TAKE 1 TABLET BY MOUTH EVERY DAY FOR 3 TO 5 DAYS NEEDED FOR FLARE OR JOINT PAIN Rx Instructions: TAKE 1 TABLET BY MOUTH EVERY DAY FOR 3 TO 5 DAYS NEEDED FOR FLARE OR JOINT PAIN Cosentyx Pen (2 Pens) 150 mg/mL pen injector 300 mg SUBCUT .[id number] Qty: 2 3RF metoprolol tartrate 25 mg tablet 12.5 mg PO BID Qty: 60 3RF atorvastatin 40 mg Tablet 40 mg PO BEDTIME 30 Days Qty: 30 1RF clopidogrel 75 mg Tablet 75 mg PO DAILY 30 Days Qty: 30 1RF aspirin 81 mg Tablet,Delayed Release (Dr/Ec) 81 mg PO DAILY 30 Days Qty: 30 1RF Discharge Orders: Discharge Order (Routine); Ordered 10/19/22 Ordered By: Aj Lowery Referrals: Aj Lowery M.D [Physician] - 2 months Berenice Lemus FNP [Nurse Practitioner] - 7-10 days Discharge Diet: Cardiac Discharge Activity: Increase activity as tolerated Patient Instructions: Opioid Safety, Coronary Angioplasty (DC) Attestations Medical Necessity Statement*: Care not expected to cross 2 midnights. Time Spent in Patient Care*: less than 30 min Quality Metrics Clinical Quality Measures: [ No reported AMI, CVA or VTE this stay ] Coding Level of Care Code Acute Code for Chg Fwd
--- NOTE | 2022-10-19 16:43 | PC.NURSE ---
tr band slowly deflated and finally removed at 1400.no hematoma noted.right hand remains warm to touch and with brisk capillary refill.palpable radial pulse noted.site dressed with 2x2 gauze and secured with biocclusive drsg.pt instructed in activity restrictions s/p tr band removal,and instructed to notify staff for any bleeding,pain,numbness,or for any concerns at all.pt verb understanding of instructions
--- NOTE | 2022-10-19 16:47 | PC.NURSE ---
discharge instructions given and explained.pt verb understanding of instructions.discharged ambulatory to exit.spouse to drive pt home
== END 2022-10-19 16:51 | disposition home or self-care (01) ==
LOC: CSU 07:39
PROVIDERS: Admitting Provider Internal Medicine; PCP Family Medicine Adult Medicine; Visit Provider Internal Medicine
DX: I25.10 Atherosclerotic heart disease of native coronary artery without angina pectoris (principal); I10 Essential (primary) hypertension; Z95.5 Presence of coronary angioplasty implant and graft; I25.2 Old myocardial infarction; Z79.82 Long term (current) use of aspirin
CPT/HCPCS: 36415; 80048; 85025; 85347; 85610; 92978; 93454; 96365; 99152; 99153; C1725; C1753; C1769; C1874; C1887; C1894; C9600; G0378; J1644; J2250; J3010; J3490; J7030; Q0163; Q9967

== ENCOUNTER → 2022-11-13 08:51 | Outpatient (BNVA) | payer MEDICARE, SELFPAY | PROVIDERS: PCP Family Medicine Adult Medicine; Visit Provider Nurse Practitioner Family | DX: I25.10 Atherosclerotic heart disease of native coronary artery without angina pectoris (principal); Z79.82 Long term (current) use of aspirin | CPT/HCPCS: 99213 ==

== ENCOUNTER → 2022-11-26 14:56 | Outpatient (BNVA) | payer MEDICARE, SELFPAY | PROVIDERS: PCP Family Medicine Adult Medicine; Visit Provider Internal Medicine Rheumatology | DX: L40.59 Other psoriatic arthropathy (principal); L40.0 Psoriasis vulgaris; Z79.899 Other long term (current) drug therapy | CPT/HCPCS: 99214 ==

== ENCOUNTER → 2023-01-14 15:31 | Outpatient (BNVA) | payer MEDICARE, SELFPAY | PROVIDERS: PCP Family Medicine Adult Medicine; Visit Provider Internal Medicine | DX: I25.10 Atherosclerotic heart disease of native coronary artery without angina pectoris (principal); R94.39 Abnormal result of other cardiovascular function study; I12.9 Hypertensive chronic kidney disease with stage 1 through stage 4 chronic kidney disease, or unspecified chronic kidney disease; N18.2 Chronic kidney disease, stage 2 (mild) | CPT/HCPCS: 99214 ==

== ENCOUNTER 2023-02-17 21:55 | Observation (INO) | payer MEDICARE, SELFPAY ==
[2023-02-17 22:03] VITALS: BP 171/78; PULSE 62; RESP 22; O2SAT 96; BMI 33.5
--- NOTE | 2023-02-17 22:03 | W.ED.CHESTPA ---
HPI - Chest Pain General: Chief Complaint: Chest Pain Stated Complaint: Chest pains Time Seen by Provider: 02/17/23 22:03 History of Present Illness: Mr. Tam is a 67-year-old gentleman with significant past medical history of CAD with stents presenting to the emergency department for chest pain. He reports onset of symptoms while laying in bed. Notes substernal pressure and discomfort with radiation down the left arm. At worst moderate intensity currently mild but still present. Denies other typical cardiac features though this feels similar to prior OK. He reports that he has not had chest pain since prior cath. No other specific changes in health, exacerbating, or alleviating factors identified. Onset (ago): hour(s) Prior episodes: No Onset: during rest Pain location: substernal Pain radiation: none Severity: moderate Relieving factors: nothing Exacerbating factors: nothing Associated symptoms: Reports no associated symptoms Review of Systems General: Reports: 10 or more systems reviewed and unremarkable except in HPI and below PFSH ED PFSH: Medical History Abnormal stress test Allergic rhinitis due to allergen Atherosclerosis of coronary artery Chronic GERD CKD (chronic kidney disease) stage 2, GFR 60-89 ml/min High risk medication use Low back strain Need for malaria prophylaxis Surgical History History of elbow surgery History of mandibular surgery Family History Other CAD (coronary artery disease) Cancer Hyperlipidemia Hypertension Denies family history of Rheumatoid arthritis Diabetes Chronic kidney disease (CKD) Systemic lupus erythematosus (SLE) in adult Stroke Social History Smoking and tobacco status: never smoked Alcohol intake: never Substance/Drug Use: never Physical Exam Const: COMMON NORMALS: alert GENERAL APPEARANCE: cooperative and well developed HENMT: COMMON NORMALS: normocephalic and atraumatic HEAD & SCALP: normocephalic and atraumatic Eye: COMMON NORMALS: conjunctivae normal CONJUNCTIVA: Yes conjunctivae normal SCLERA: sclerae normal Neck/C-Spine: COMMON NORMALS: supple GENERAL: Yes trachea midline Resp: COMMON NORMALS: clear to auscultation bilaterally EFFORT & INSPECTION: Yes able to speak in complete sentences AUSCULTATION: clear to auscultation bilaterally Cardio: COMMON NORMALS: regular rate and regular rhythm RATE: regular rate RHYTHM: regular rhythm GI: COMMON NORMALS: Soft to palpation PALPATION: Yes Soft to palpation and No Tenderness to palpation present (GI) Extremity: GENERAL: Yes normal exam except as noted and No edema Neuro: COMMON NORMALS: moves all extremities SENSORIUM/ORIENTATION: Yes alert and No Orientation impaired Psych: COMMON NORMALS: mental status grossly normal and Normal thought process present THOUGHT PROCESS: Normal thought process present Course Vital Signs: Vital signs: Vital Signs Temperature 97.7 F 02/18/23 12:00 Pulse Rate 55 L 02/18/23 14:00 Respiratory Rate 18 02/18/23 12:00 Blood Pressure 156/91 02/18/23 12:00 Pulse Oximetry 95 02/18/23 12:00 Oxygen Delivery Me thod Room Air 02/18/23 12:00 MDM - Chest Pain Medical Decision Making 67-year-old gentleman presenting with chest pain. Prior cardiac history with no episodes of chest pain since last intervention. EKG demonstrates sinus rhythm with mild nonspecific ST segment abnormalities, no STEMI. Unremarkable hematologic and metabolic panel. Intermediate range 2-hour delta troponin. Chest x-ray with no lobar consolidation or pneumothorax. Patient is not low risk by heart score and is appropriate for in-hospital cardiac testing. Given that he has been chest pain-free since prior intervention and now having some atypical feature chest pain with intermediate range delta troponin. The results of ED evaluation were discussed with the patient including plan for admission due to requirement for level of care not available if discharged to prevent significant worsening/deterioration. Patient agreeable with plan. Discussed with hospitalist service who was agreeable to admit patient. Medical Records I reviewed the patient's medical records. Lab Data I reviewed the patient's lab results. 02/17/23 22:19 02/17/23 22:19 Radiology Impressions Chest X-Ray 02/17/23 22:04 IMPRESSION: No acute findings. Laboratory Results WBC 5.5 10^3/uL (4.0-10.0) 02/17/23 22:19 RBC 4.90 10^6/uL (4.1-5.3) 02/17/23 22:19 Hgb 14.8 g/dL (11.7-16.6) 02/17/23 22:19 Hct 45.0 % (42.0-52.0) 02/17/23 22:19 MCV 91.8 fl (80-94) 02/17/23 22:19 MCH 30.2 pg (28.0-34.0) 02/17/23 22:19 MCHC 32.9 g/dL (30.0-36.0) 02/17/23 22:19 RDW 14.3 % (12.1-15.1) 02/17/23 22:19 Plt Count 162 10^3/cmm (130-400) 02/17/23 22:19 MPV 10.0 fL (7.4-10.4) 02/17/23 22:19 Neut % (Auto) 59.4 % 02/17/23 22:19 Lymph % (Auto) 23.5 % 02/17/23 22:19 [place] % (Auto) 11.7 % 02/17/23 22:19 Eos % (Auto) 4.0 % 02/17/23 22:19 Baso % (Auto) 0.5 % 02/17/23 22:19 Neut # (Auto) 3.29 10^3/uL (1.8-7.7) 02/17/23 22:19 Lymph # (Auto) 1.3 10^3/uL (0.8-4.8) 02/17/23 22:19 [place] # (Auto) 0.7 10^3/uL (0.2-0.9) 02/17/23 22:19 Eos # (Auto) 0.2 10^3/uL (0.0-0.8) 02/17/23 22:19 Baso # (Auto) 0.0 10^3/uL (0.0-0.1) 02/17/23 22:19 Nucleated RBC % (auto) 0 % 02/17/23: Nucleated RBCs # 0.0 /100WBC 02/17/23 22:19 Sodium 136 mmol/L (136-145) 02/17/23 22:19 Potassium 3.9 mmol/L (3.5-5.1) 02/17/23 22:19 Chloride 103 mmol/L (98-107) 02/17/23 22:19 Carbon Dioxide 24 mmol/L (22-29) 02/17/23 22:19 Anion Gap 12.9 (5-19) 02/17/23 22:19 BUN 22 mg/dL (8-23) 02/17/23 22:19 Creatinine 1.1 mg/dL (0.7-1.2) 02/17/23 22:19 GFR Calculation 66.4 mL/min (90-130) L 02/17/23 22:19 Glucose 99 mg/dL (65-115) 02/17/23 22:19 Calculated Osmolality 285 mOsm/kg (285-295) 02/17/23 22:19 Calcium 8.4 mg/dL (8.5-10.5) L 02/17/23 22:19 Total Bilirubin 0.3 mg/dL (0.15-1.2) 02/17/23 22:19 AST 15 U/L (0-40) 02/17/23 22:19 ALT 24 U/L (0-41) 02/17/23 22:19 Alkaline Phosphatase 57 U/L (40-130) 02/17/23 22:19 Troponin T Baseline 10 ng/L (0-15) 02/17/23 22:19 Troponin T 120 Minute 16.15 ng/L (0-15) H 02/18/23 00:07 Delta Troponin T 6.15 ABS# (0-10) 02/18/23 00:07 NT-Pro-B Natriuret Pep 50 pg/mL (0-125) 02/17/23 22:19 Total Protein 6.3 g/dL (6.6-8.7) L 02/17/23 22:19 Albumin 3.6 g/dL (3.5-5.2) 02/17/23 22:19 Globulin 2.7 g/dL (1.3-4.6) 02/17/23 22:19 Lipase 48 U/L (13-60) 02/17/23 22:19 TSH 2.20 uIU/mL (0.27-4.20) 02/17/23 22:19 Discharge Plan Discharge Patient Disposition: Placed in Observation Admit Provider: Rose Dominguez Clinical Impression: Chest pain Discharge Diet: Usual diet Discharge Activity: Resume usual activity Coding Level of Care Code ED Railroad Detective for Chg Chong
--- NOTE | 2023-02-17 22:04 | ECG_ITS ---
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 Measurements Intervals [place] Rate: 60 P: 44 OK: 174 QRS: 1 QRSD: 100 T: 44 QT: 426 QTc: 428 Interpretive Statements SINUS RHYTHM Compared to ECG 08/23/2022 16:23:03 Sinus bradycardia no longer present Myocardial infarct finding no longer present T-wave abnormality no longer present Possible ischemia no longer present Electronically Signed On 02-18-2023 9:37:55 CDT by Aj Lowery M.D. [id number] f
--- NOTE | 2023-02-17 22:04 | XRR_ITS ---
PROCEDURE INFORMATION: Exam: XR Chest Exam date and time: 02/17/2023 10:07 PM Age: 67 years old Clinical indication: Pain; Chest pressure; Additional info: Cp TECHNIQUE: Imaging protocol: Radiologic exam of the chest. Views: 1 view. COMPARISON: CR XR chest 1V portable [id number] 08/23/2022 10:50 AM FINDINGS: Lungs: Unremarkable. No consolidation. Pleural spaces: Unremarkable. No pleural effusion. No pneumothorax. Heart/Mediastinum: Unremarkable. No cardiomegaly. Bones/joints: Unremarkable. XR/XR chest 1V portable [id number] IMPRESSION: No acute findings.
[2023-02-17 22:15] VITALS: BP 165/80; PULSE 57; RESP 24; O2SAT 96
[2023-02-17] MEDS: aspirin 81 mg Chew Tablet 324 MG PO (22:21)
[2023-02-17 22:30] VITALS: BP 147/81; PULSE 61; RESP 23; O2SAT 92
[2023-02-17 22:45] VITALS: BP 141/77; PULSE 56; RESP 18
[2023-02-17 22:46] LABS: Basophils % 0.5 %; Eosinophils # 0.2 10^3/uL (0.0-0.8); Hemoglobin 14.8 g/dL (11.7-16.6); Lymphocytes # 1.3 10^3/uL (0.8-4.8); Lymphocytes % 23.5 %; Mean Corpuscular HGB Conc 32.9 g/dL (30.0-36.0); Mean Corpuscular Hemoglobin 30.2 pg (28.0-34.0); Mean Corpuscular Volume 91.8 fl (80-94); Monocytes # 0.7 10^3/uL (0.2-0.9); Monocytes % 11.7 %; Neutrophils # 3.29 10^3/uL (1.8-7.7); Neutrophils % 59.4 %; Nucleated Red Blood Cells % 0 %; Platelet Count 162 10^3/cmm (130-400); Red Cell Distribution Width 14.3 % (12.1-15.1); White Blood Count 5.5 10^3/uL (4.0-10.0)
[2023-02-17 23:00] VITALS: BP 133/73; PULSE 55; RESP 22; O2SAT 93
[2023-02-17 23:03] LABS: Troponin(5th) Baseline 10 ng/L (0-15)
[2023-02-17 23:12] LABS: Alanine Aminotransferase 24 U/L (0-41); Albumin Level 3.6 g/dL (3.5-5.2); Alkaline Phosphatase 57 U/L (40-130); Anion Gap 12.9 (5-19); Aspartate Amino Transferase 15 U/L (0-40); Blood Urea Nitrogen 22 mg/dL (8-23); Calcium 8.4 mg/dL (8.5-10.5); Carbon Dioxide 24 mmol/L (22-29); Chloride 103 mmol/L (98-107); Globulin 2.7 g/dL (1.3-4.6); Glomerular Filtration Rate 66.4 mL/min (90-130); Glucose 99 mg/dL (65-115); Lipase 48 U/L (13-60); NT Pro B Type Natriuretic Pept 50 pg/mL (0-125); Osmolality Calculated 285 mOsm/kg (285-295); Potassium 3.9 mmol/L (3.5-5.1); Sodium 136 mmol/L (136-145); Total Bilirubin 0.3 mg/dL (0.15-1.2); Total Protein 6.3 g/dL (6.6-8.7)
[2023-02-18] VITALS (12 sets, daily range): BP systolic 116–156; BP diastolic 73–97; PULSE 45–78; RESP 16–18; TEMP 36.5–36.9; O2SAT 91–99
--- NOTE | 2023-02-18 | ECG_ITS ---
[facility] Test Date: 2023-02-18 Pat Name: Orlando Tam Department: Room: 102 Gender: Male Electronic Die Maker: Windyjesse Kang : 1955 Requested By: Aj Lowery Order Number: [id number] Pan MD: Aj Lowery M.D. Interpretive Statements NAME OF STUDY: LEXISCAN SESTAMIBI STRESS TEST INDICATION: [Chest Pain, ] Procedure: At the baseline, the blood pressure was 149/105 mmHg with a heart rate of 55 bpm. The electrocardiogram showed sinus bradycardia, normal axis with normal ST and T's. The Lexiscan was infused over a period of 20 seconds. A total of 0.4 mg of Lexiscan was infused. The stress phase was continued for a total of 5 minutes. Heart rate was at the end of stress phase was 81 bpm and a blood pressure of 113/86 mmHg. The EKG at the peak infusion revealed normal sinus rhythm with no significant ST-T wave changes. Sestamibi was injected 20 seconds after the Lexiscan infusion. Blood pressure at the end of recovery phase was 138/97 mmHg with a heart rate of 78 bpm. Conclusion: 1. Normal EKG response to Lexiscan infusion 2. No Lexiscan induced chest pain or cardiac arrhythmia. 3. Normal blood pressure and heart rate response. 4. Sestamibi/sestamibi perfusion scan pending; see separate report. Electronically Signed On 02-23-2023 14:48:07 CDT by Aj Lowery M.D. [email or web address] [email or web address].[email or web address]/store/[id number]
[2023-02-18 00:28] LABS: Troponin 5 2HR 16.15 ng/L (0-15)
[2023-02-18 00:29] LABS: Troponin 5 2HR Delta 6.15 ABS# (0-10)
--- NOTE | 2023-02-18 00:57 | PM.HP ---
Providers/Chief Complaint Primary Care Provider: Wilfredo Jeter MD Chief Complaint: Chest pains History of Present Illness Orlando Tam is a 67 year old male with past medical history of chronic GERD, CKD, CAD status post PCI, NSTEMI presented to the hospital today with complaint of chest pain. He said the pain started when he was laying in bed and not really exerting himself. It was in the middle of his chest substernal area felt like a pressure and also radiated down to his left arm. He describes it as moderate intensity. He says the pain does feel like his previous GA. He has not really had chest pain since his prior cath. Nothing really making it better or worse. Denies nausea vomiting diarrhea, diaphoresis, abdominal pain. He recently saw cardiology on 15 January and was asked to follow-up in 6 months and to continue aspirin and Plavix. 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 ED course: On arrival to ER blood pressure 171/78, respiratory 22, pulse 62, saturating 96% on room air. Labs unremarkable. Delta troponin at 2-hour 6.15, BNP 50, TSH 2.20. EKG did not show any acute ischemic changes. It shows sinus bradycardia heart rate of 57. Cardiology was called in consultation from ER. Medications/Allergies Home Medications Medication Instructions Recorded Confirmed Last Taken Type aspirin 81 mg tablet,delayed 81 mg PO DAILY 90 days #30 tabs 11/09/22 02/18/23 Unknown Rx release atorvastatin 40 mg tablet 40 mg PO BEDTIME cholesterol & 11/09/22 02/18/23 Unknown Rx fats 90 days #90 tabs clopidogrel 75 mg tablet 75 mg PO DAILY circulation 90 days 11/09/22 02/18/23 Unknown Rx #90 tabs metoprolol tartrate 25 mg tablet 12.5 mg PO BID blood pressure 90 11/28/22 02/18/23 Unknown Rx days #90 tabs pantoprazole 40 mg tablet,delayed 40 mg PO DAILY acid reflux #90 tabs 11/29/22 02/18/23 Unknown Rx release secukinumab 150 mg/mL subcutaneous 300 mg (2 mL) SUBCUT .P6ivatp #2 mL 01/14/23 02/18/23 02/14/23 Rx pen injector (Cosentyx Pen 300 mg/2 Pens () ipratropium bromide 21 mcg (0.03 2 spray intranasal DAILY 02/18/23 02/18/23 Unknown History %) nasal spray Allergies Allergy/AdvReac Type Severity Reaction Status Date / Time sulfasalazine Allergy Intermediate rash all Verified 02/17/23 22:03 over as a child leflunomide AdvReac Intermediate diarrhea Verified 02/17/23 22:03 methotrexate AdvReac Mild itch all Verified 02/17/23 22:03 over PFSH Acute PFSH: Medical History Allergic rhinitis due to allergen Atherosclerosis of coronary artery Chronic GERD CKD (chronic kidney disease) stage 2, GFR 60-89 ml/min High risk medication use Low back strain Need for malaria prophylaxis Surgical History History of elbow surgery History of mandibular surgery Family History Other CAD (coronary artery disease) Cancer Hyperlipidemia Hypertension Denies family history of Rheumatoid arthritis Diabetes Chronic kidney disease (CKD) Systemic lupus erythematosus (SLE) in adult Stroke Social History Smoking and tobacco status: never smoked Alcohol intake: never Substance/Drug Use: never Vitals/I&O/Wt Last Vital Signs Pulse 55 L 02/17/23 23:00 Resp 22 H 02/17/23 23:00 BP 133/73 02/17/23 23:00 Pulse Ox 93 02/17/23 23:00 O2 Del Method Room Air 02/17/23 23:00 Weight last 48 hrs Weight 108.862 kg Physical Exam Narrative: General: Alert oriented x3, patient seen laying in bed, at this time chest pain-free HEENT: Normocephalic, atraumatic, EOMI, Cardio: Regular rate rhythm, normal S1-S2, Respiratory: Good bilateral air entry, no wheezes no rhonchi appreciated GI: Abdomen soft, nontender, nondistended, bowel sounds + Behavior: Appropriate and cooperative Extremities: Pulses 2+, no edema, no cyanosis Data 02/17/23 22:19 02/17/23 22:19 A&P Assessment and plan (1) Chest pain: (2) Chronic GERD: (3) Hypertension: (4) Unstable angina: Plan #Unstable angina #CAD status post PCI times 27 July 2022 and September 2022 #Sinus bradycardia #Chronic GERD #CKD - Continue aspirin Plavix atorvastatin, metoprolol ? Check echocardiogram ? Await 6-hour troponin ? Repeat EKG if chest pain recurs. ? At this time patient is chest pain-free. ? Cardiology consulted. Await further recommendations ? Sublingual nitro every 5 minutes as needed for chest pain ? N.p.o. at midnight ? Placed on therapeutic Lovenox Full code Therapeutic Lovenox will suffice for DVT prophylaxis Attestations Medical Necessity Statement*: >2 midnight stay for unstable angina Coding Level of Care Code G0425 (30 min) TH Encounter Time (min): 45 Patient seen via Telehealth in the acute care setting (hospital or ED location) by agreement and consent of patient or patient sales development representative. Telehealth technology used during the visit includes video and audio. This patient encounter is appropriate and reasonable under the circumstances given the patient?s particular presentation at this time. The patient has been advised of the potential risks and limitations of this mode of treatment (including but not limited to the absence of in-person examination at this time) and has agreed to be treated by an off-site physician for this visit. If deemed clinically necessary from this telehealth visit, or if condition or consent for telehealth visit changes, an in-person visit will be arranged. For this encounter, total time for the origination of telehealth care on this date is as shown. Diagnoses Chest pain R07.9 Chronic GERD K21.9 Hypertension I10 Unstable angina I20.0
--- NOTE | 2023-02-18 00:59 | USCV_ITS ---
Orlando Tam Age: 67 Gender: M : 1955 Exam Date: 02/18/2023 06:34 Ordering Phys: Rose Dominguez MD Technologist: Jose Myers [place] [facility] [place]: chest pain BP: 140 / 80 HR: 61 Rhythm: Sinus Technical Quality: Adequate MEASUREMENTS (Male / Female) Normal Values 2D ECHO LV Diastolic Diameter PLAX 3.2 cm 4.2 - 5.9 / 3.9 - 5.3 cm LV Systolic Diameter PLAX 2.0 cm IVS Diastolic Thickness 1.4 cm 0.6 - 1.0 / 0.6 - 0.9 cm IVS Systolic Thickness 1.8 cm LVPW Diastolic Thickness 0.9 cm 0.6 - 1.0 / 0.6 - 0.9 cm LVPW Systolic Thickness 1.7 cm LVOT Diameter 2.3 cm LV Ejection Fraction 2D Teich 67.0 % LV Ejection Fraction MOD 2C 69.7 % LV Ejection Fraction 2C AL 69.8 % LA Diameter 3.3 cm M-MODE Aortic Annulus Diameter 3.8 cm LA Ao Ratio MM 1.2 MV E Point Septal Separation 1.5 cm DOPPLER AV Peak Velocity 126.0 cm/s LVOT Peak Velocity 113.0 cm/s AV Area Cont Eq vti 3.8 cm squared AV Area Cont Eq pk 3.9 cm squared MV Area PHT 5.0 cm squared Mitral E to A Ratio 0.8 MV E' Velocity 41.6 cm/s Mitral E to MV E' Ratio 11.4 Mitral E to LV E' Lateral Ratio 12.8 Mitral E to LV E' Septal Ratio 10.4 TR Peak Velocity 125.7 cm/s TR Peak Gradient 6.3 mmHg TV Peak E Velocity 63.0 cm/s Right Atrial Pressure 3.0 mmHg Pulmonary Artery Systolic Pressu 9.3 mmHg FINDINGS Left Ventricle Normal left ventricular size and systolic function, EF 65 %. Mild left ventricular hypertrophy. No regional wall motion abnormalities. Right Ventricle The right ventricle is normal in size and function. Right Atrium The right atrium is normal in size. Left Atrium The left atrium is normal in size. Mitral Valve No gross abnormalities noted Aortic Valve No gross abnormalities noted Tricuspid Valve No gross abnormalities noted Pulmonic Valve Pulmonic valve not well visualized. Pericardium Normal pericardium without effusion. Aorta The aortic root measured 4.1 cm at the level of the sinuses IVC Inferior vena cava not visualized. CONCLUSIONS Normal left ventricular size and systolic function, EF 65 %. Mild left ventricular hypertrophy. No regional wall motion abnormalities. Possibly normal cardiac chamber sizes. No obvious valvular abnormalities noted. Minimally dilated aortic root Technically somewhat difficult study because of the poor ultrasonic window Dr Neetu Molina MD FAC (Electronically Signed) Final Date: 20 February 2023 07:46 S
--- NOTE | 2023-02-18 01:07 | PC.NURSE ---
Report given to Ary ECKERT at this time.
--- NOTE | 2023-02-18 02:39 | ECG_ITS ---
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 Measurements Intervals [place] Rate: 57 P: 7 NH: 195 QRS: 54 QRSD: 100 T: 13 QT: 439 QTc: 428 Interpretive Statements SINUS BRADYCARDIA POSSIBLE INFERIOR MYOCARDIAL INFARCTION , PROBABLY OLD [30 ms Q WAVE IN II/aVF] Compared to ECG 02/17/2023 22:04:22 Myocardial infarct finding now present Sinus rhythm no longer present Electronically Signed On 02-18-2023 9:38:27 CDT by Aj Lowery M.D. [id number]
[2023-02-18] MEDS: enoxaparin 120 mg/0.8 mL Syringe 110 MG SUBCUT (04:33)
--- NOTE | 2023-02-18 06:40 | P.CONIM_ITS ---
Providers/Reason For Consult Consulting Physician/Specialty*: Aj Lowery MD/ Cardiology Reason for Consult*: Chest pain Requesting Physician: Dr Dominguez Attending Physician: Rose Dominguez MD Primary Care Provider: Wilfredo Jeter MD History of Present Illness History of Present Illness Orlando Tam is a 67 year old male with past medical history of CAD who presented to hospital with chest pain with radiation to left arm. This episode continued for about 1 hour. He had prior PCI of LAD and RCA several months ago. EKG shows normal sinus rhythm with no significant ST-T wave changes. Troponins have not trended up.Currently he is chest pain free. Review of Systems Const: Denies: fatigue Eyes: Denies: change in vision Card: Reports: chest pain; Denies: palpitations, irregular heart rhythm, swelling of feet/ankles, lightheadedness, pre-syncope, dyspnea on exertion, orthopnea or leg pain with exertion Resp: Denies: dyspnea, productive cough or non-productive cough GI: Denies: heartburn Musc: Reports: back pain; Denies: neck pain Neuro: Denies: headache(s) or dizziness Psych: Denies: anxiety, depression, suicidal ideation or homicidal ideation Xavier/Lymph: Reports: easy bruising and easy bleeding Medications/Allergies Home Medications Medication Instructions Recorded Confirmed Last Taken Type aspirin 81 mg tablet,delayed 81 mg PO DAILY 90 days #30 tabs 11/09/22 02/21/23 Unknown Rx release atorvastatin 40 mg tablet 40 mg PO BEDTIME cholesterol & 11/09/22 02/21/23 Unknown Rx fats 90 days #90 tabs clopidogrel 75 mg tablet 75 mg PO DAILY circulation 90 days 11/09/22 02/21/23 Unknown Rx #90 tabs pantoprazole 40 mg tablet,delayed 40 mg PO DAILY acid reflux #90 tabs 11/29/22 02/21/23 Unknown Rx release secukinumab 150 mg/mL subcutaneous 300 mg (2 mL) SUBCUT .[id number] #2 mL 01/14/23 02/21/23 02/14/23 Rx pen injector (Cosentyx Pen 300 mg/2 Pens () isosorbide mononitrate 30 mg 30 mg PO DAILY #90 tabs 02/18/23 02/21/23 Unknown Rx tablet,extended release 24 hr metoprolol tartrate 25 mg tablet 12.5 mg PO DAILY blood pressure 90 02/18/23 02/21/23 Unknown Rx days #90 tabs nitroglycerin 0.4 mg sublingual 0.4 mg sublingual Q5M PRN chest 02/18/23 02/21/23 Unknown Rx tablet pain #30 tabs fluticasone propionate 50 2 spray intranasal DAILY 02/21/23 02/21/23 Unknown History mcg/actuation nasal spray,suspension (Flonase Allergy Relief) Allergies Allergy/AdvReac Type Severity Reaction Status Date / Time sulfasalazine Allergy Intermediate rash all Verified 02/21/23 12:55 over as a child leflunomide AdvReac Intermediate diarrhea Verified 02/21/23 12:55 methotrexate AdvReac Mild itch all Verified 02/21/23 12:55 over PFSH Acute PFSH: Medical History Allergic rhinitis due to allergen Atherosclerosis of coronary artery Chronic GERD CKD (chronic kidney disease) stage 2, GFR 60-89 ml/min High risk medication use Low back strain Need for malaria prophylaxis Surgical History History of elbow surgery History of mandibular surgery Family History Other CAD (coronary artery disease) Cancer Hyperlipidemia Hypertension Denies family history of Rheumatoid arthritis Diabetes Chronic kidney disease (CKD) Systemic lupus erythematosus (SLE) in adult Stroke Social History Smoking and tobacco status: never smoked Alcohol intake: never Substance/Drug Use: never Vitals/I&O/Wt Last Vital Signs Temp 97.9 F 02/18/23 04:11 Pulse 53 L 02/18/23 05:46 Resp 16 02/18/23 04:00 BP 116/82 02/18/23 04:00 Pulse Ox 99 02/18/23 04:00 O2 Del Method Room Air 02/18/23 04:00 02/17/23 02/17/23 02/18/23 14:59 22:59 06:59 Output Total 400 / 400 Balance -400 / -400 Weight last 48 hrs Weight 240 lb Physical Exam Narrative: GENERAL: Patient is alert, awake and oriented x3. [] NECK: No jugular vein distension. [] HEENT: No cyanosis. No icterus. No pallor. [] HEART: Regular S1 and S2. No murmur, rub or gallop. [] LUNGS: Clear to auscultate bilaterally. [] CENTRAL NERVOUS SYSTEM: Grossly nonfocal. [] EXTREMITIES: Lower extremities with no edema Data 02/17/23 22:19 02/17/23 22:19 A&P Assessment and plan (1) NSTEMI (non-ST elevated myocardial infarction): (2) CKD (chronic kidney disease): (3) Hypertension: Plan Patient is overall stable. Chest pain episode was typical however no troponin elevation and no EKG changes. We will recommend stress test. If stress test is normal, can be maximized on medical therapy and discharged home. We will add Imdur and order sublingual nitro for outpatient. Thank you for involving us with care of this patient. Please call with questions. Consult Attestations Medical Necessity Statement: Care expected to cross 2 midnights. Coding Level of Care Code Acute Code for [facility] Fwd Diagnoses NSTEMI (non-ST elevated myocardial infarction) I21.4 CKD (chronic kidney disease) N18.9 Hypertension I10
--- NOTE | 2023-02-18 07:57 | NMCV_ITS ---
NM stephanie perf SPECT r/s* [id number] Orlando Tam Age: 67 Gender: M : 1955 Exam Date: 02/18/2023 10:14 Ordering Phys: Aj Lowery M.D ([email or web address]) Technologist: BENSON Cintron Exam Location: [facility] Indications: CHEST PAIN STRESS TEST Please [facility] IMAGE PROTOCOL Rest/Stress 1 Lexiscan Day Radiopharmaceutical Dose (mCi) Administration Site Administered by Rest: Tc-99m 11.0 IV BENSON Cintron Sestamibi Stress:Tc-99m 32.3 IV BENSON [place] Sestamibi Rest: 18-Feb-2023 60 Discovery 630 Stress: 18-Feb-2023 30 Discovery 630 0.4mg Lexiscan. Images obtained in supine and prone position. SPECT RESULTS Technical Quality: Excellent Raw Data Analysis: Normal Image Corrections: No attenuation or motion correction applied Summed Stress Score: 0 Summed Rest Score: 3 Summed Difference Score: 0 PERFUSION FINDINGS SPECT images demonstrate homogeneous tracer distribution throughout the myocardium. FUNCTIONAL RESULTS (calculated via Gated SPECT) Stress Image LV EF (%): 75 Stress EDV (mL):91 TID: 0.89 Stress ESV (mL):23 FUNCTIONAL FINDINGS: There is normal left ventricular systolic function. IMPRESSIONS 1. Normal myocardial perfusion imaging with no evidence of ischemia 2. LV systolic function is normal Aj Lowery MD (Electronically Signed) Final Date: 18 February 2023 12:16 S
[2023-02-18 08:07] LABS: Troponin 5 6HR 17.21 ng/L (0-15)
[2023-02-18 08:18] LABS: Troponin 5 6HR Delta 7.21 ng/L (0-12)
[2023-02-18] MEDS: pantoprazole DR 40 mg Tablet PO (09:20)
[2023-02-18] MEDS: aspirin 81 mg EC Tablet PO (09:20)
[2023-02-18] MEDS: clopidogrel 75 mg Tablet PO (09:20)
[2023-02-18] MEDS: regadenoson 0.4 Mg/5 ml Syringe IVP (11:13)
--- NOTE | 2023-02-18 11:46 | PM.MISC ---
Miscellaneous Note Purpose of Documentation: Overnight labs and H&P reviewed. Patient presented overnight for chest pain. Troponin series is overall unremarkable for acute TN. No acute ST-T wave changes on EKG. Overnight heart rate dropping to 45 bpm, asymptomatic. Metoprolol is currently on hold for this reason. Patient is planned for a stress test today. Further orders depending on results of the stress test. Discussed with cardiology.
== END 2023-02-18 15:15 | disposition home or self-care (01) ==
LOC: ER 02-18 00:34 → CSU 02-18 00:58
PROVIDERS: Admitting Provider Internal Medicine; Emergency Provider Emergency Medicine; PCP Family Medicine Adult Medicine; Visit Provider Student in an Organized Health Care Education/Training Program
DX: R07.9 Chest pain, unspecified (principal); I25.10 Atherosclerotic heart disease of native coronary artery without angina pectoris; N18.2 Chronic kidney disease, stage 2 (mild); R00.1 Bradycardia, unspecified; K21.9 Gastro-esophageal reflux disease without esophagitis; Z95.5 Presence of coronary angioplasty implant and graft; Z79.82 Long term (current) use of aspirin; Z79.899 Other long term (current) drug therapy
CPT/HCPCS: 36415; 71045; 78452; 80053; 83690; 83880; 84443; 84484; 85025; 93005; 93017; 93306; 96372; 96374; 96375; 99285; A9500; G0378; J1650; J2785

== ENCOUNTER → 2023-03-04 10:50 | Outpatient (BNVA) | payer MEDICARE, SELFPAY | PROVIDERS: PCP Family Medicine Adult Medicine; Visit Provider Nurse Practitioner Family | DX: I25.10 Atherosclerotic heart disease of native coronary artery without angina pectoris (principal); I12.9 Hypertensive chronic kidney disease with stage 1 through stage 4 chronic kidney disease, or unspecified chronic kidney disease; N18.2 Chronic kidney disease, stage 2 (mild); R06.00 Dyspnea, unspecified | CPT/HCPCS: 99214 ==

== ENCOUNTER 2023-04-04 10:00 | Outpatient (CLI) | payer MEDICARE, SELFPAY | END 2023-04-04 10:01 | disposition home or self-care (01) | LOC: SLEEP 04-08 07:17 | PROVIDERS: PCP Family Medicine Adult Medicine; Visit Provider Nurse Practitioner Family | DX: G47.00 Insomnia, unspecified (principal); R06.00 Dyspnea, unspecified | CPT/HCPCS: 94762 ==

== ENCOUNTER → 2023-06-11 09:10 | Outpatient (BNVA) | payer MEDICARE, SELFPAY | PROVIDERS: PCP Family Medicine Adult Medicine; Visit Provider Internal Medicine Rheumatology | DX: Z79.899 Other long term (current) drug therapy (principal); L40.59 Other psoriatic arthropathy; L40.0 Psoriasis vulgaris | CPT/HCPCS: 99214 ==

== ENCOUNTER 2023-07-16 07:15 | Outpatient (CLI) | payer MEDICARE, SELFPAY ==
[2023-07-16 07:31] LABS: Basophils # 0.1 10^3/uL (0.0-0.1); Basophils % 0.7 %; Eosinophils # 0.1 10^3/uL (0.0-0.8); Eosinophils % 1.6 %; Lymphocytes % 14.9 %; Mean Corpuscular HGB Conc 33.4 g/dL (30-55); Mean Corpuscular Hemoglobin 30.9 pg (27-33); Mean Corpuscular Volume 92.4 fl (82-101); Mean Platelet Volume 9.5 fL (7.4-10.4); Monocytes # 0.7 10^3/uL (0.2-0.9); Monocytes % 10.3 %; Neutrophils # 4.89 10^3/uL (1.8-7.7); Neutrophils % 72.1 %; Nucleated Red Blood Cells % 0 %; Platelet Count 169 10^3/cmm (157-399); Red Blood Count 4.76 10^6/uL (3.85-5.65); White Blood Count 6.79 10^3/uL (3.29-11.43)
[2023-07-16 07:46] LABS: Alanine Aminotransferase 24 U/L (0-41); Albumin Level 3.7 g/dL (3.5-5.2); Alkaline Phosphatase 52 U/L (40-130); Aspartate Amino Transferase 18 U/L (0-40); Globulin 2.8 g/dL (1.3-4.6); Glomerular Filtration Rate 54.6 mL/min (90-130); Total Bilirubin 0.7 mg/dL (0.15-1.2); Total Protein 6.5 g/dL (6.6-8.7)
== END 2023-07-16 07:16 | disposition home or self-care (01) ==
PROVIDERS: PCP Family Medicine Adult Medicine; Visit Provider Internal Medicine Rheumatology
DX: L40.59 Other psoriatic arthropathy (principal); Z79.899 Other long term (current) drug therapy
CPT/HCPCS: 36415; 80076; 82565; 85025; 86140

== ENCOUNTER → 2023-08-28 14:34 | Outpatient (BNVA) | payer MEDICARE, SELFPAY | PROVIDERS: PCP Family Medicine Adult Medicine; Visit Provider Internal Medicine | DX: I25.10 Atherosclerotic heart disease of native coronary artery without angina pectoris (principal); R94.39 Abnormal result of other cardiovascular function study; N52.9 Male erectile dysfunction, unspecified; I12.9 Hypertensive chronic kidney disease with stage 1 through stage 4 chronic kidney disease, or unspecified chronic kidney disease; N18.2 Chronic kidney disease, stage 2 (mild) | CPT/HCPCS: 99214 ==

== ENCOUNTER 2023-10-09 08:53 | Emergency (ER) | payer MEDICARE, SELFPAY ==
[2023-10-09 09:12] VITALS: BP 162/94; PULSE 80; TEMP 36.8; O2SAT 96; BMI 33.5
--- NOTE | 2023-10-09 09:13 | XRR_ITS ---
PROCEDURE INFORMATION: Exam: XR Chest Exam date and time: 10/09/2023 9:17 AM Age: 68 years old Clinical indication: Cough and dyspnea; Additional info: Dyspnea/cough TECHNIQUE: Imaging protocol: Radiologic exam of the chest. Views: 1 view. COMPARISON: CR (CHEST, ) 02/17/2023 10:07 PM FINDINGS: Lungs: Unremarkable. No consolidation. Pleural spaces: Unremarkable. No pleural effusion. No pneumothorax. Heart/Mediastinum: Moderate hiatal hernia. Vasculature: A uncoiling of the thoracic aorta. Bones/joints: Unremarkable. XR/XR chest 1V portable [id number] IMPRESSION: No acute findings.
--- NOTE | 2023-10-09 09:26 | ECG_ITS ---
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 Measurements Intervals [place] Rate: 71 P: 38 TN: 164 QRS: -15 QRSD: 98 T: 35 QT: 378 QTc: 411 Interpretive Statements SINUS RHYTHM MODERATE VOLTAGE CRITERIA FOR LVH, CONSIDER NORMAL VARIANT [MEETS CRITERIA IN ONE OF: R(aVL), S(V1), R(V5), R(V5/V6)+S(V1)] Compared to ECG 02/18/2023 02:39:54 Sinus bradycardia no longer present Myocardial infarct finding no longer present Electronically Signed On 10-09-2023 15:45:46 INTERFACE CONTROL OFFICER by Aj Lowery M.D. [id number]
--- NOTE | 2023-10-09 09:27 | ED_ITS ---
HPI - URI/Sore Throat 2 General: Chief Complaint: Upper Respiratory Infection Stated Complaint: Cough/ congestion Time Seen by Provider: 10/09/23 08:58 Source: patient Mode of arrival: ambulatory History of Present Illness: 68-year-old male presents emergency room complaining cough and congestion for the last 5 to 6 weeks. Has been on several rounds of antibiotics with no improvement. He has noticed some orthopnea nonproductive cough. No fever sweats or chills. He most recently was on Augmentin which does not seem to be helping. Previous notes reviewed. MD elicited complaint: cough Onset (ago): week(s) Consistency: constant and progressively worsening Severity: mild Description of mucous: clear Able to tolerate fluids by mouth: Yes Exacerbating factors: exertion and supine positioning Associated symptoms: Reports change in voice, chest pain, congestion, cough, nasal congestion and short of breath; Deny abdominal pain, chills, diarrhea, epistaxis, ear or mastoid pain, fever(s), headache(s), myalgias, nausea, rash, rhinorrhea, sinus pain, stiffness, sore throat or vomiting Treatments prior to arrival: antibiotics Review of Systems 2 Const: Denies: fever(s) or chills ENMT: Reports: nasal congestion; Denies: ear or mastoid pain, epistaxis or sinus pain Card: Reports: chest pain Resp: Denies: dyspnea GI: Denies: abdominal pain, nausea, vomiting or diarrhea : Denies: dysuria, urinary frequency or urinary urgency Musc: Denies: neck pain or back pain Skin/Breast: Denies: rash Neuro: Denies: headache(s) PFSH ED 2 PFSH: Medical History Chronic GERD Allergic rhinitis due to allergen Need for malaria prophylaxis Abnormal stress test CKD (chronic kidney disease) stage 2, GFR 60-89 ml/min Atherosclerosis of coronary artery Low back strain High risk medication use Surgical History History of elbow surgery History of mandibular surgery Family History Other CAD (coronary artery disease) Cancer Hyperlipidemia Hypertension Denies family history of Rheumatoid arthritis Diabetes Chronic kidney disease (CKD) Systemic lupus erythematosus (SLE) in adult Stroke Social History Smoking and tobacco/nicotine status: never used tobacco/nicotine Alcohol intake: never Substance/Drug Use: never Physical Exam 2 Const: COMMON NORMALS: no acute distress GENERAL APPEARANCE: cooperative and comfortable ORIENTATION/CONSCIOUSNESS: Yes awake, Yes oriented to person, Yes oriented to place and Yes oriented to time HENMT: COMMON NORMALS: normocephalic, atraumatic and hearing grossly normal bilaterally HEAD & SCALP: normocephalic and atraumatic Resp: COMMON NORMALS: normal respiratory effort, No retractions, No use of accessory muscles and clear to auscultation bilaterally AUSCULTATION: clear to auscultation bilaterally Cardio: COMMON NORMALS: regular rate, regular rhythm and No murmurs present (Cardio) RATE: regular rate RHYTHM: regular rhythm GI: COMMON NORMALS: Soft to palpation and No hepatosplenomegaly present A USCULTATION: Yes normoactive bowel sounds PALPATION: Yes Soft to palpation, No Tenderness to palpation present (GI), No Guarding due to palpation present (GI) and Yes No hepatosplenomegaly present Extremity: COMMON NORMALS: normal to inspection, capillary refill normal, no clubbing, cyanosis or edema, no calf tenderness and no pedal edema Neuro: SENSORIUM/ORIENTATION: Yes oriented to person, Yes oriented to place and Yes oriented to time Skin: COMMON NORMALS: no rashes or lesions noted GENERAL SKIN EXAM: no rashes or lesions noted Course 2 Vital Signs: Vital signs: Vital Signs Temperature 98.2 F 10/09/23 09:12 Pulse Rate 80 10/09/23 09:12 Blood Pressure 162/94 10/09/23 09:12 Pulse Oximetry 96 10/09/23 09:12 Oxygen Delivery Me thod Room Air 10/09/23 09:12 MDM - URI/Sore Throat Medical Decision Making Chest x-ray CTA reviewed. No pulmonary embolism he does have a moderate hiatal hernia there is no PE no effusion. Does not appear to be in congestive heart failure. In talking to him it seems to be worse when he lays down he has not correlated it to particularly with eating. Does not look like he has urinary fascia or acute congestive heart failure. He is been on several courses antibiotics with persistence of symptoms. Suspect some of this may be GI in nature reflux probably exacerbated by saddle hernia increase his Protonix to twice daily. Additionally recommend he follow-up with pulmonology and ENT to evaluate further for conditions that might contribute to his chronic cough. Recheck fizzing worsening or changes symptoms Medical Records I reviewed the patient's medical records. Lab Data I reviewed the patient's lab results. 10/09/23 09:24 10/09/23 09:24 Radiology Impressions Chest X-Ray 10/09/23 09:13 IMPRESSION: No acute findings. Laboratory Results WBC 6.82 10^3/uL (3.29-11.43) 10/09/23 09:24 RBC 5.15 10^6/uL (3.85-5.65) 10/09/23 09:24 Hgb 15.90 g/dL (11.27-16.99) 10/09/23 09:24 Hct 48.1 % (37-53) 10/09/23 09:24 MCV 93.4 fl (82-101) 10/09/23:24 MCH 30.9 pg (27-33) 10/09/23 09:24 MCHC 33.1 g/dL (30-55) 10/09/23 09:24 RDW 14.3 % (12.1-15.1) 10/09/23 09:24 Plt Count 156 10^3/cmm (157-399) L 10/09/23 09:24 MPV 9.2 fL (7.4-10.4) 10/09/23 09:24 Neut % (Auto) 73.4 % 10/09/23 09:24 Lymph % (Auto) 10.6 % 10/09/23 09:24 Starr % (Auto) 12.8 % 10/09/23 09:24 Eos % (Auto) 1.6 % 10/09/23 09:24 Baso % (Auto) 0.7 % 10/09/23 09:24 Neut # (Auto) 5.01 10^3/uL (1.8-7.7) 10/09/23 09:24 Lymph # (Auto) 0.7 10^3/uL (0.8-4.8) L 10/09/23 09:24 Starr # (Auto) 0.9 10^3/uL (0.2-0.9) 10/09/23 09:24 Eos # (Auto) 0.1 10^3/uL (0.0-0.8) 10/09/23 09:24 Baso # (Auto) 0.1 10^3/uL (0.0-0.1) 10/09/23 09:24 Nucleated RBC % (auto) 0 % 10/09/23 09:24 Nucleated RBCs # 0.0 /100WBC 10/09/23 09:24 Sodium 137 mmol/L (136-145) 10/09/23 09:24 Potassium 4.1 mmol/L (3.5-5.1) 10/09/23 09:24 Chloride 104 mmol/L (98-107) 10/09/23 09:24 Carbon Dioxide 21 mmol/L (22-29) L 10/09/23 09:24 Anion Gap 16.1 (5-19) 10/09/23 09:24 BUN 28 mg/dL (8-23) H 10/09/23 09:24 Creatinine 1.3 mg/dL (0.7-1.2) H 10/09/23 09:24 GFR Calculation 54.6 mL/min (90-130) L 10/09/23 09:24 Glucose 95 mg/dL (65-115) 10/09/23 09:24 Calculated Osmolality 289 mOsm/kg (285-295) 10/09/23 09:24 Calcium 8.6 mg/dL (8.5-10.5) 10/09/23 09:24 Total Bilirubin 0.5 mg/dL (0.15-1.2) 10/09/23 09:24 AST 23 U/L (0-40) 10/09/23 09:24 ALT 35 U/L (0-41) 10/09/23 09:24 Alkaline Phosphatase 54 U/L (40-130) 10/09/23 09:24 NT-Pro-B Natriuret Pep 61 pg/mL (0-125) 10/09/23 09:24 Total Protein 6.9 g/dL (6.6-8.7) 10/09/23 09:24 Albumin 3.6 g/dL (3.5-5.2) 10/09/23 09:24 Globulin 3.3 g/dL (1.3-4.6) 10/09/23 09:24 All radiology interpretation(s) finalized by discharge Discharge Plan Discharge Patient Disposition: Home Clinical Impression: Chronic cough Condition: Stable Prescriptions: Changed pantoprazole 40 mg tablet,delayed release (DR/EC) 40 mg PO BID Qty: 90 3RF No Action aspirin 81 mg tablet,delayed release (DR/EC) 81 mg PO DAILY 90 Days Qty: 30 3RF clopidogrel 75 mg tablet 75 mg PO DAILY 90 Days Qty: 90 3RF sildenafil 50 mg tablet 50 mg PO DAILY PRN (Reason: sexual activity) Qty: 25 2RF Rx Instructions: administer 30 minutes to 4 hours before activity Cosentyx Pen (2 Pens) 150 mg/mL pen injector 300 mg SUBCUT .[id number] Qty: 2 10RF albuterol sulfate 90 mcg/actuation HFA aerosol inhaler 2 inh inhalation Q4H PRN (Reason: shortness of breath or wheezing) Qty: 6.7 0RF amoxicillin-pot clavulanate 875-125 mg tablet 1 tab PO BID 10 Days Qty: 20 0RF cetirizine [Zyrtec] 10 mg tablet 10 mg PO DAILY Qty: 30 0RF fluticasone propionate [Flonase Allergy Relief] 50 mcg/actuation spray,suspension 2 spray intranasal DAILY Qty: 16 3RF nitroglycerin 0.4 mg tablet, sublingual 0.4 mg sublingual Q5M PRN (Reason: chest pain) Qty: 30 1RF atorvastatin 40 mg tablet 40 mg PO BEDTIME metoprolol tartrate 25 mg tablet 25 mg PO DAILY isosorbide mononitrate 30 mg tablet extended release 24 hr 30 mg PO DAILY prednisone 10 mg tablet See Rx Instructions .ROUTE .COMPLEX Rx Instructions: TAKE 10 MG BY MOUTH EVERY DAY FOR 3 TO 5 DAYS NEEDED. Discharge Orders: Discharge ED (Routine); Ordered 10/09/23 Ordered By: Mayo Frye Referrals: Wilfredo Jeter MD [Primary Care Provider] - Discharge Diet: Usual diet Discharge Activity: Increase activity as tolerated Patient Instructions: Opioid Safety, Pain Management Activity Restrictions/Additional Instructions: Thank you for choosing [facility] for your healthcare needs today. Please realize this is an emergency room and that we are providing you with a medical screening exam and this may not be complete and all inclusive of all the testing and or work up that you may need to determine your ailment or severity of your illness. It is very important that you follow up as instructed or that you return to the Emergency Department should you have concerns or if your condition changes or worsens in any way. You are seen for chronic cough. Since the previous rounds of antibiotic steroids has not resolved was recommend you increase your Protonix to twice a day and will make appointments for you to follow-up with pulmonology and with ENT for further evaluation of your chronic cough Coding Level of Care Code ED Laser Systems Engineer for Toni Schwarz
[2023-10-09 09:42] LABS: Basophils # 0.1 10^3/uL (0.0-0.1); Basophils % 0.7 %; Eosinophils # 0.1 10^3/uL (0.0-0.8); Eosinophils % 1.6 %; Hematocrit 48.1 % (37-53); Lymphocytes # 0.7 10^3/uL (0.8-4.8); Lymphocytes % 10.6 %; Mean Corpuscular HGB Conc 33.1 g/dL (30-55); Mean Corpuscular Hemoglobin 30.9 pg (27-33); Mean Corpuscular Volume 93.4 fl (82-101); Mean Platelet Volume 9.2 fL (7.4-10.4); Monocytes # 0.9 10^3/uL (0.2-0.9); Monocytes % 12.8 %; Neutrophils # 5.01 10^3/uL (1.8-7.7); Neutrophils % 73.4 %; Nucleated Red Blood Cells % 0 %; Platelet Count 156 10^3/cmm (157-399); Red Blood Count 5.15 10^6/uL (3.85-5.65); Red Cell Distribution Width 14.3 % (12.1-15.1); White Blood Count 6.82 10^3/uL (3.29-11.43)
[2023-10-09 09:57] LABS: Alanine Aminotransferase 35 U/L (0-41); Albumin Level 3.6 g/dL (3.5-5.2); Alkaline Phosphatase 54 U/L (40-130); Anion Gap 16.1 (5-19); Aspartate Amino Transferase 23 U/L (0-40); Blood Urea Nitrogen 28 mg/dL (8-23); Calcium 8.6 mg/dL (8.5-10.5); Carbon Dioxide 21 mmol/L (22-29); Chloride 104 mmol/L (98-107); Globulin 3.3 g/dL (1.3-4.6); Glomerular Filtration Rate 54.6 mL/min (90-130); Glucose 95 mg/dL (65-115); Osmolality Calculated 289 mOsm/kg (285-295); Potassium 4.1 mmol/L (3.5-5.1); Sodium 137 mmol/L (136-145); Total Bilirubin 0.5 mg/dL (0.15-1.2); Total Protein 6.9 g/dL (6.6-8.7)
[2023-10-09 10:25] LABS: NT Pro B Type Natriuretic Pept 61 pg/mL (0-125)
--- NOTE | 2023-10-09 11:38 | CT_ITS ---
WS: [id number] CT CHEST ANGIOGRAPHY WITH REFORMATS HISTORY: dyspnea TECHNIQUE: Contiguous axial images are obtained through the chest during arterial injection of intrav enous contrast. Images are reconstructed to evaluate the pulmonary arteries. MIP imaging also reviewe d. All CT scans at [facility] use at least one of these dose optimization techniques: automat ed exposure control; mA and/or kV adjustment per patient size (includes targeted exams where dose is matched to clinical indication); or iterative reconstruction. CONTRAST: Omnipaque 350; 100 mL IV. DLP: 565.53 mGy.cm COMPARISON: None available. Very good opacification of the pulmonary arteries. No embolism is identified. Thoracic aorta is only mildly ectatic with mild atherosclerotic change. No RIGHT heart strain. There is very mild dilatation of the LEFT ventricle. No mediastinal or hilar adenopathy. Moderate coronary artery calcifications. No pulmonary mass, nodule or pneumonia. No pericardial or pleural effusions. Stomach is intrathoracic with slight mass effect upon the posterior LEFT atrium. No adrenal mass. Cholelithiasis without acut e cholecystitis. No bile duct dilatation. No osseous destruction. Mild increase in thoracic kyphosis. IMPRESSION: 1. No pulmonary embolism. 2. No pneumonia. 3. Large intrathoracic stomach. 4. Cholelithiasis without acute cholecystitis. 5. Moderate coronary artery calcification.
[2023-10-09] MEDS: iohexol 350 mg/mL 500 mL Btl (per mL) IV (12:25)
--- NOTE | 2023-10-11 04:31 | DCPLANNER ---
Message sent to Pulmonology and ENT for chronic cough-
== END 2023-10-09 13:32 | disposition home or self-care (01) ==
PROVIDERS: Emergency Provider Family Medicine; PCP Family Medicine Adult Medicine
DX: R05.3 Chronic cough (principal); Z79.82 Long term (current) use of aspirin; Z79.02 Long term (current) use of antithrombotics/antiplatelets; N18.2 Chronic kidney disease, stage 2 (mild); I25.10 Atherosclerotic heart disease of native coronary artery without angina pectoris
CPT/HCPCS: 36415; 71045; 71275; 80053; 83880; 85025; 93005; 99285; Q9967

== ENCOUNTER → 2023-10-22 07:42 | Outpatient (BNVA) | payer MEDICARE, SELFPAY | PROVIDERS: PCP Family Medicine Adult Medicine; Visit Provider Otolaryngology | DX: J01.90 Acute sinusitis, unspecified (principal); R05.3 Chronic cough; K21.9 Gastro-esophageal reflux disease without esophagitis; J34.2 Deviated nasal septum; R04.0 Epistaxis | CPT/HCPCS: 31575; 99204 ==

== ENCOUNTER 2023-10-28 10:40 | Outpatient (CLI) | payer MEDICARE, SELFPAY ==
--- NOTE | 2023-10-28 10:49 | XRR_ITS ---
PROCEDURE INFORMATION: Exam: XR Chest Exam date and time: 10/28/2023 10:52 AM Age: 68 years old Clinical indication: Cough TECHNIQUE: Imaging protocol: Radiologic exam of the chest. Views: 2 views. COMPARISON: CT angio chest PE protcl [id number] 10/09/2023 12:25 PM FINDINGS: Lungs: No significant active pathology. Pleural spaces: No pleural effusion or pneumothorax. Heart/Mediastinum: Unchanged [id number] hiatal hernia. Bones/joints: No significant pathology. XR/XR chest 2V* [id number] IMPRESSION: No acute pathology or significant interval change.
== END 2023-10-28 10:41 | disposition home or self-care (01) ==
LOC: RAD 10:46
PROVIDERS: PCP Family Medicine Adult Medicine; Visit Provider Nurse Practitioner Family
DX: R05.3 Chronic cough (principal)
CPT/HCPCS: 71046

== ENCOUNTER 2023-11-05 10:39 | Outpatient (CLI) | payer MEDICARE, SELFPAY ==
--- NOTE | 2023-11-05 11:00 | CT_ITS ---
WS: [id number] CT SINUSES TECHNIQUE: Noncontrast CT of the paranasal sinuses with coronal and sagittal reformatted images. CLINICAL INFORMATION: Sinus Concerns COMPARISON: 2007 DLP: 354.[address] scans at [facility] use at least one of these dose optimization techniques: automated e xposure control; mA and/or kV adjustment per patient size (includes targeted exams where dose is matc hed to clinical indication); or iterative reconstruction. FINDINGS: Paranasal sinusitis has progressed since 2017. RIGHT to LEFT nasal septal deviation measuring 6.5 mm. RIGHT kellie bullosa. Bilateral maxillary sinusitis with inspissated secretions and air-fluid levels . Mucosal thickening RIGHT greater than LEFT maxillary sinuses. Partial opacification of the ethmoid air cells with sinusitis. Partial opacification frontoethmoidal recesses. Frothy secretions LEFT sphe noid sinus. Trace mucosal thickening in the frontal sinuses. Cavernous carotid calcification. Mastoid air cells are well aerated. Normal posterior nasopharynx and parapharyngeal fat. IMPRESSION: 1. RIGHT to LEFT nasal septal deviation measuring 6.5 mm. RIGHT kellie bullosa. 2. Bilateral maxillary sinusitis with air-fluid levels. Mucosal thickening along the ostiomeatal uni ts bilaterally. 3. Mucosal thickening in the frontoethmoidal recesses. 4. Sinusitis in the ethmoid air cells and LEFT sphenoid sinus ostia. 5. Mastoid air cells are well aerated.
== END 2023-11-05 10:40 | disposition home or self-care (01) ==
LOC: RAD 10:40
PROVIDERS: PCP Family Medicine Adult Medicine; Visit Provider Otolaryngology
DX: J01.00 Acute maxillary sinusitis, unspecified (principal); J01.20 Acute ethmoidal sinusitis, unspecified; J01.30 Acute sphenoidal sinusitis, unspecified; J34.2 Deviated nasal septum; J34.9 Unspecified disorder of nose and nasal sinuses
CPT/HCPCS: 70486

== ENCOUNTER → 2023-11-22 10:02 | Outpatient (BNVA) | payer MEDICARE, SELFPAY | PROVIDERS: PCP Family Medicine Adult Medicine; Referring Provider Family Medicine; Visit Provider Internal Medicine Pulmonary Disease | DX: R05.3 Chronic cough (principal); Z91.89 Other specified personal risk factors, not elsewhere classified; K44.9 Diaphragmatic hernia without obstruction or gangrene | CPT/HCPCS: 99204 ==

== ENCOUNTER 2023-12-10 06:49 | Outpatient (CLI) | payer MEDICARE, SELFPAY | END 2023-12-10 06:50 | disposition home or self-care (01) | LOC: RT 06:49 | PROVIDERS: PCP Family Medicine Adult Medicine; Visit Provider Internal Medicine Pulmonary Disease | DX: R05.3 Chronic cough (principal) | CPT/HCPCS: 94010; 94726; 94729 ==

== ENCOUNTER → 2023-12-30 12:59 | Outpatient (BNVA) | payer MEDICARE, SELFPAY | PROVIDERS: PCP Family Medicine Adult Medicine; Visit Provider Internal Medicine Pulmonary Disease | DX: R05.3 Chronic cough (principal); Z91.89 Other specified personal risk factors, not elsewhere classified; K44.9 Diaphragmatic hernia without obstruction or gangrene | CPT/HCPCS: 99214 ==

== ENCOUNTER → 2024-02-17 08:04 | Outpatient (BNVA) | payer MEDICARE, SELFPAY | PROVIDERS: PCP Family Medicine Adult Medicine; Visit Provider Nurse Practitioner Family | DX: D48.5 Neoplasm of uncertain behavior of skin (principal); L57.0 Actinic keratosis; L91.8 Other hypertrophic disorders of the skin; L82.0 Inflamed seborrheic keratosis; L82.1 Other seborrheic keratosis | CPT/HCPCS: 11102; 17000; 17110; 99203 ==

== ENCOUNTER → 2024-03-03 09:04 | Outpatient (BNVA) | payer MEDICARE, SELFPAY | PROVIDERS: PCP Family Medicine Adult Medicine; Visit Provider Dermatology | DX: C44.41 Basal cell carcinoma of skin of scalp and neck (principal); L82.0 Inflamed seborrheic keratosis | CPT/HCPCS: 12042; 17110; 17311 ==

== ENCOUNTER → 2024-03-23 10:04 | Outpatient (BNVA) | payer MEDICARE, SELFPAY | PROVIDERS: PCP Family Medicine Adult Medicine; Visit Provider Nurse Practitioner Family | DX: I12.9 Hypertensive chronic kidney disease with stage 1 through stage 4 chronic kidney disease, or unspecified chronic kidney disease (principal); N18.2 Chronic kidney disease, stage 2 (mild); I25.10 Atherosclerotic heart disease of native coronary artery without angina pectoris | CPT/HCPCS: 99214 ==

== ENCOUNTER → 2024-04-20 14:35 | Outpatient (BNVA) | payer MEDICARE, SELFPAY | PROVIDERS: PCP Family Medicine Adult Medicine; Visit Provider Internal Medicine Rheumatology | DX: L40.59 Other psoriatic arthropathy (principal); L40.0 Psoriasis vulgaris; N18.9 Chronic kidney disease, unspecified; Z71.85 Encounter for immunization safety counseling; Z79.899 Other long term (current) drug therapy | CPT/HCPCS: 36415; 80076; 82565; 85025; 85651; 86140; 99214 ==

== ENCOUNTER → 2024-08-25 15:45 | Outpatient (BNVA) | payer MEDICARE, SELFPAY | PROVIDERS: PCP Family Medicine Adult Medicine; Visit Provider Nurse Practitioner Family | DX: L21.8 Other seborrheic dermatitis (principal); Z08 Encounter for follow-up examination after completed treatment for malignant neoplasm; Z85.828 Personal history of other malignant neoplasm of skin; L82.0 Inflamed seborrheic keratosis; B07.8 Other viral warts | CPT/HCPCS: 17110; 99214 ==

== ENCOUNTER → 2024-08-31 12:33 | Outpatient (BNVA) | payer MEDICARE, SELFPAY | PROVIDERS: PCP Family Medicine Adult Medicine; Visit Provider Internal Medicine | DX: I25.10 Atherosclerotic heart disease of native coronary artery without angina pectoris (principal); R94.39 Abnormal result of other cardiovascular function study; N52.9 Male erectile dysfunction, unspecified; I12.9 Hypertensive chronic kidney disease with stage 1 through stage 4 chronic kidney disease, or unspecified chronic kidney disease; N18.2 Chronic kidney disease, stage 2 (mild) | CPT/HCPCS: 99214 ==

== ENCOUNTER → 2024-10-19 14:37 | Outpatient (BNVA) | payer MEDICARE, SELFPAY | PROVIDERS: PCP Family Medicine; Visit Provider Internal Medicine Rheumatology | DX: L40.59 Other psoriatic arthropathy (principal); L40.0 Psoriasis vulgaris; Z79.899 Other long term (current) drug therapy | CPT/HCPCS: 80053; 80061; 80076; 82565; 84439; 84443; 85025; 85651; 86140; 99214 ==

== ENCOUNTER → 2025-02-23 14:00 | Outpatient (BNVA) | payer MEDICARE, SELFPAY | PROVIDERS: PCP Family Medicine; Visit Provider Nurse Practitioner Family | DX: L57.8 Other skin changes due to chronic exposure to nonionizing radiation (principal); Z08 Encounter for follow-up examination after completed treatment for malignant neoplasm; Z85.828 Personal history of other malignant neoplasm of skin; L91.8 Other hypertrophic disorders of the skin; L29.89 Other pruritus; L53.8 Other specified erythematous conditions; Z78.9 Other specified health status; R20.8 Other disturbances of skin sensation; D48.5 Neoplasm of uncertain behavior of skin; L57.0 Actinic keratosis | CPT/HCPCS: 11102; 17000; 17110; 99213 ==

== ENCOUNTER → 2025-03-01 14:34 | Outpatient (BNVA) | payer MEDICARE, SELFPAY | PROVIDERS: PCP Family Medicine; Visit Provider Internal Medicine | DX: R06.09 Other forms of dyspnea (principal); I25.10 Atherosclerotic heart disease of native coronary artery without angina pectoris; R94.39 Abnormal result of other cardiovascular function study; I10 Essential (primary) hypertension; N52.01 Erectile dysfunction due to arterial insufficiency; Z79.02 Long term (current) use of antithrombotics/antiplatelets; Z79.82 Long term (current) use of aspirin | CPT/HCPCS: 99214 ==

== ENCOUNTER → 2025-03-19 07:59 | Outpatient (BNVA) | payer MEDICARE, SELFPAY | PROVIDERS: PCP Family Medicine; Visit Provider Dermatology | DX: Z08 Encounter for follow-up examination after completed treatment for malignant neoplasm (principal); Z85.828 Personal history of other malignant neoplasm of skin; C44.319 Basal cell carcinoma of skin of other parts of face; L82.0 Inflamed seborrheic keratosis; L29.89 Other pruritus | CPT/HCPCS: 11200; 12052; 17110; 17311; 99213 ==

== ENCOUNTER 2025-04-02 06:59 | Outpatient (CLI) | payer MEDICARE, SELFPAY ==
--- NOTE | 2025-04-02 | ECG_ITS ---
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 Interpretive Statements Lung unchanged pre/post procedure; Intraprocedure shortess of breath; Symptoms resoled by discharge PROCEDURE: At the baseline, the EKG revealed normal sinus rhythm with a possible old inferior wall MN.. The baseline heart was 60 bpm with a blood pressue of 123/66 mm of Hg Lexiscan was infused over a period of 20 seconds. A total of 0.4 milligrams of Lexiscan was infused. The stress phase was continued for a total of 5 minutes. Heart rate at the end of the stress phase was 77 bpm with a blood pressure 115/75 mm of Hg. The EKG at the peak infusion revealed no significant changes. Sestamibi was injected 20 seconds after the Lexiscan infusion. Heart rate at the end of the recovery phase was 75 bpm with a blood pressure of 119/69 mm of Hg. CONCLUSION: 1. No significant EKG changes with the LexiScan infusion 2. No LexiScan induced chest pain or cardiac arrhythmia 3. Normal blood pressure and heart rate response 4. Sestamibi/sestamibi perfusion scan pending; see separate report. Electronically Signed On 04-06-2025 09:35:15 CDT by Neetu Molina M.D. [email or web address]
[2025-04-02 07:58] VITALS: BMI 33.5
--- NOTE | 2025-04-02 08:01 | NMCV_ITS ---
NM stephanie perf SPECT r/s* [id number] Orlando Tam Age: 70 Gender: M : 1955 Exam Date: 04/02/2025 08:25 Ordering Phys: Aj Lowery M.D ([email or web address]) Technologist: BENSON Adams Exam Location: [facility] Indications: cp STRESS TEST Please [facility] for [facility] IMAGE PROTOCOL Rest/Stress 1 Lexiscan Day Radiopharmaceutical Dose (mCi) Administration Site Administered by Rest: Tc-99m 10.9 IV BENSON Adams Sestamibi Stress:Tc-99m 32.4 IV Arlene Lopez, RESIDENTIAL INSTRUCTOR Sestamibi Rest: 02-Apr-2025 60 Discovery 630 Stress: 02-Apr-2025 30 Discovery 630 0.4mg Lexiscan. Images obtained in supine and prone position. SPECT RESULTS Technical Quality: Good Raw Data Analysis: Normal Image Corrections: No attenuation or motion correction applied Summed Stress Score: 1 Summed Rest Score: 6 Summed Difference Score: 0 PERFUSION FINDINGS Patchy areas of slightly decreased tracer uptake was noted in the inferior and inferolateral regions. No significant reversibility was noted in these regions FUNCTIONAL RESULTS (calculated via Gated SPECT) Stress Image LV EF (%): 77 Stress EDV (mL):90 TID: 1.04 Stress ESV (mL):21 FUNCTIONAL FINDINGS: Segmental wall motion analysis revealing no gross wall motion abnormalities IMPRESSIONS 1. Myocardial perfusion imaging revealing patchy areas of persistent decreased tracer uptake in the inferior and inferolateral regions suggesting myocardial scarring versus attenuation artifact 2. Normal LV ejection fraction 77% 3. LV wall motion analysis revealing no gross wall motion abnormalities. 4. Normal LV volume Compared to study from 10/04/2022, no evidence of ischemia at this time. Low probability for coronary ischemia, based on the above findings Dr Neetu Molina MD FAC (Electronically Signed) Final Date: 02 April 2025 11:22 S
[2025-04-02 09:00] VITALS: BP 119/69; PULSE 75
== END 2025-04-02 07:00 | disposition home or self-care (01) ==
LOC: CDL 07:02
PROVIDERS: PCP Family Medicine; Visit Provider Internal Medicine
DX: R07.9 Chest pain, unspecified (principal); R06.02 Shortness of breath
CPT/HCPCS: 36415; 78452; 93017; 96374; A9500; J2785

== ENCOUNTER → 2025-04-05 13:07 | Outpatient (BNVA) | payer MEDICARE, SELFPAY | PROVIDERS: PCP Family Medicine; Visit Provider Internal Medicine Rheumatology | DX: L40.59 Other psoriatic arthropathy (principal); L40.0 Psoriasis vulgaris; Z79.899 Other long term (current) drug therapy | CPT/HCPCS: 36415; 80076; 82306; 82565; 85025; 85651; 86140; 86480; 99214 ==

== ENCOUNTER → 2025-04-21 08:46 | Outpatient (BNVA) | payer MEDICARE, SELFPAY | PROVIDERS: PCP Family Medicine; Visit Provider Surgery | DX: Z12.11 Encounter for screening for malignant neoplasm of colon (principal) | CPT/HCPCS: 99024; 99204 ==

== ENCOUNTER 2025-05-06 10:47 | Day surgery (SDC) | payer MEDICARE, SELFPAY ==
[2025-05-06 10:59] VITALS: BP 159/96; PULSE 57; RESP 18; TEMP 36.1; O2SAT 99; BMI 33.5
--- NOTE | 2025-05-06 11:20 | ANES.PREANE2 ---
Pre-Anesthetic Assessment Height/Weight: Height 1.8 m Weight 108.862 kg Temp Pulse Resp BP Pulse Ox O2 Del Method 97.0 F L 57 L 18 159/96 99 Room Air 05/06/25 10:59 05/06/25 10:59 05/06/25 10:59 05/06/25 10:59 05/06/25 10:59 05/06/25 10:59 Preop Diagnosis: screening Operation Date: 05/06/25 12:20 Proposed Procedures p COlonoscopy 18026 G0105 Z12.11(Not Applicable) - Adithya Ramirez MD Was Beta Rajeev taken within 24 hours: Yes Was Clonidine taken within 24 hours: N/A Last intake: Intake Last Liquid Date 05/05/25 Last Liquid Time 20:00 Last Solid Date 05/04/25 Last Solid Time 19:00 Social No alcohol and No tobacco Exam alert and oriented x 3 Airway Submandibular: within normal limits Cervical ROM: within normal limits Mallampati: Class II Dentition: full History/ROS No significant history except as noted Pulmonary None reported CV/HEM Myocardial Infarction Chronic Renal Insufficiency Hepatic None reported GI Gastroesophageal Reflux Disease and Hiatal Hernia Metabolic None reported Musc/skel None reported Neuropsych None reported Anesthetic Plan ASA status: 3 Anesthesia: MAC Risk of > 500 ml blood loss (7ml/kg in children): No Medications/Allergies Home Medications ?Medication ?Instructions ?Recorded ?Confirmed ?Last Taken ?Type aspirin 81 mg tablet,delayed 81 mg PO DAILY 90 days #30 tabs 11/09/22 05/03/25 05/03/25 06:00 Rx release clopidogrel 75 mg tablet 75 mg PO DAILY circulation 90 days 08/13/24 05/03/25 04/30/25 Rx #90 tabs atorvastatin 40 mg tablet 40 mg PO BEDTIME #90 tabs 12/24/24 05/03/25 05/02/25 Rx pantoprazole 40 mg tablet,delayed 40 mg PO ONCE acid reflux #90 tabs 12/24/24 05/03/25 05/03/25 06:00 Rx release azelastine 137 mcg (0.1 %) nasal 2 spray intranasal BID #90 mL 01/14/25 05/03/25 Unknown Rx spray fluticasone propionate 50 1 spray intranasal BID #3 ea 01/14/25 05/03/25 Unknown Rx mcg/actuation nasal spray,suspension isosorbide mononitrate 30 mg 30 mg PO DAILY #90 tabs 01/15/25 05/03/25 05/03/25 06:00 Rx tablet,extended release 24 hr metoprolol tartrate 25 mg tablet 12.5 mg (1/2 x 25 mg) PO DAILY 02/02/25 05/03/25 05/03/25 06:00 Rx blood pressure #90 tabs prednisone 10 mg tablet 10 mg PO DAILY joint pain #90 tabs 04/05/25 05/03/25 05/03/25 06:00 Rx Allergies Allergy/AdvReac Type Severity Reaction Status Date / Time sulfasalazine Allergy Intermediate rash all Verified 05/03/25 10:19 over as a child leflunomide AdvReac Intermediate diarrhea Verified 05/03/25 10:19 methotrexate AdvReac Mild itch all Verified 05/03/25 10:19 over Current Medications Generic Name Dose Route Start Last Admin Trade Name Freq PRN Reason Stop Dose Admin Sodium Chloride 1,000 mls @ 30 mls/hr 05/06/25 07:00 05/06/25 11:11 Sodium Chloride 0.9% IV 05/07/25 06:59 30 mls/hr .Q24H MARY JO Administration PFSH Anesthesia Medical History Positive colorectal cancer screening using Cologuard test 7.28.25 Hx of nonmelanoma skin cancer sees derm Plaque psoriasis sees derm Polyarticular psoriatic arthritis sees rheumatology Erectile dysfunction Hiatal hernia large intrathoracic stomach on CT 10/19; saw DR. Cardenas pulm; Cholelithiasis on CTA 10/19 Hypercholesterolemia Chronic cough saw DR. Cardenas; PFTs normal; due to large intrathoracic hiatal hernia Chronic GERD Allergic rhinitis due to allergen CKD (chronic kidney disease) stage 2, GFR 60-89 ml/min Atherosclerosis of coronary artery has stents and has had angioplasty High risk medication use Surgical History Hx of craniotomy for subdural hematoma after a fall History of coronary artery stent placement has had 3 stents, one balloon angioplasty History of elbow surgery Left History of mandibular surgery Right parotid/lymph nodes for infection Family History Mother Lymphoma Father CAD (coronary artery disease) Other Cancer Hyperlipidemia Hypertension Denies family history of Rheumatoid arthritis Diabetes Chronic kidney disease (CKD) Systemic lupus erythematosus (SLE) in adult Stroke Social History Smoking and tobacco/nicotine status: never used tobacco/nicotine Alcohol intake: never Substance/Drug Use: never Household members: spouse Marital status: Number of children: 1 Highest education level completed: High School Graduate Current occupational status: retired Previous occupational history: [employer] Anesthesia Cardiac Studies: Echocardiogram 02/18/23 Sestamibi Stress Test (Cardiology) 04/02/25
--- NOTE | 2025-05-06 11:30 | W.PM.OPSUD ---
Surgery/Procedure H&P Update DATE OF PROCEDURE: May 06, 2025 DATE H&P PERFORMED: 04/21/25 H&P UPDATE INFORMATION: I have reviewed H&P completed within last 30 days, I have examined patient prior to procedure, No changes to prior documentation, H[facility]P is in [facility] EMR on date indicated and Risks and benefits of the procedure reviewed PREOP DIAGNOSIS: screening PLANNED PROCEDURE: Operation Date: 05/06/25 12:20 Proposed Procedures p COlonoscopy 40553 G0105 Z12.11(Not Applicable) - Adithya Ramirez MD
--- NOTE | 2025-05-06 11:47 | PC.NURSE ---
cecum time 114
[2025-05-06 12:08] VITALS: BP 112/77; PULSE 59; RESP 18; TEMP 36.3; O2SAT 100
--- NOTE | 2025-05-06 12:15 | ANE.PACU2 ---
Inpatient post-anesthesia follow up: Airway intact: Yes Vital signs: Temperature 97.3 F Pulse Rate 59 Respiratory Rate 18 Blood Pressure 112/77 Pulse Oximetry 100 Oxygen Delivery Me thod Room Air Oxygen Flow Rate Fraction of Inspir ed Oxygen Hydration adequate: Yes Nausea and vomiting: No Pain level: 1 Mental status: Baseline
[2025-05-06 12:16] VITALS: BP 131/80; PULSE 61; RESP 18; O2SAT 97
[2025-05-06 12:35] VITALS: BP 123/80; PULSE 60; RESP 18; O2SAT 94
--- NOTE | 2025-05-06 13:14 | ANE.PACU2 ---
Inpatient post-anesthesia follow up: Airway intact: Yes Vital signs: Temperature 97.3 F Pulse Rate 60 Respiratory Rate 18 Blood Pressure 123/80 Pulse Oximetry 94 Oxygen Delivery Me thod Room Air Oxygen Flow Rate Fraction of Inspir ed Oxygen Hydration adequate: Yes Nausea and vomiting: No Pain level: 1 Mental status: Baseline
== END 2025-05-06 12:43 | disposition home or self-care (01) ==
PROVIDERS: PCP Family Medicine; Visit Provider Surgery
PROC: 0DJD8ZZ Inspection of Lower Intestinal Tract, Via Natural or Artificial Opening Endoscopic (ICD-10-PCS; CPT 45378; principal; 2025-05-06 12:20)
DX: Z12.11 Encounter for screening for malignant neoplasm of colon (principal); R19.5 Other fecal abnormalities; D12.2 Benign neoplasm of ascending colon; D12.0 Benign neoplasm of cecum; D12.5 Benign neoplasm of sigmoid colon; I25.2 Old myocardial infarction; K21.9 Gastro-esophageal reflux disease without esophagitis; N18.2 Chronic kidney disease, stage 2 (mild); I25.10 Atherosclerotic heart disease of native coronary artery without angina pectoris; E78.00 Pure hypercholesterolemia, unspecified; Z79.82 Long term (current) use of aspirin
CPT/HCPCS: 45380; 45385; 88305; J2704; J7030

== ENCOUNTER → 2025-05-25 13:18 | Outpatient (BNVA) | payer MEDICARE, SELFPAY | PROVIDERS: PCP Family Medicine; Visit Provider Surgery | DX: Z09 Encounter for follow-up examination after completed treatment for conditions other than malignant neoplasm (principal) | CPT/HCPCS: 99213 ==

== ENCOUNTER → 2025-08-10 13:32 | Outpatient (BNVA) | payer MEDICARE, SELFPAY | PROVIDERS: PCP Family Medicine; Visit Provider Nurse Practitioner Family | DX: L57.8 Other skin changes due to chronic exposure to nonionizing radiation (principal); Z08 Encounter for follow-up examination after completed treatment for malignant neoplasm; Z85.828 Personal history of other malignant neoplasm of skin; D48.5 Neoplasm of uncertain behavior of skin | CPT/HCPCS: 11102; 99213 ==